=== PATIENT | female | born 2005 | race Caucasian/White ===

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

== ENCOUNTER 2025-02-08 20:39 | Observation (INO) | payer MEDICAID, SELFPAY ==
--- OUTSIDE RECORDS SUMMARY | 2025-02-08 20:45 | XMS_ITS | CCD ---
Author Organization [facility]iniSyma Care Team Providers Care Press Shop Supervisor Name Role Phone REJI VAZQUEZ Consulting Unavailable REJI VAZQUEZ Attending Unavailable SHEMAR SETH Primary Care Unavailable REJI VAZQUEZ Admitting Unavailable Amaya Steele Unavailable Sharonda Mercado Unavailable Lynsey Conklin Unavailable Liset Aguilera Unavailable Riya Edgar Unavailable Tessa Figueroa Unavailable No Pcp, No Pcp Primary Care Provider Unavailabl e KROTZER, MELISSA M Referring Unavailable NO PCP, NO PCP Primary Care Unavailable KROTZER, MELISSA M Referring Unavailable NO PCP, NO PCP Primary Care Unavailable Unavailable Primary Care Provider Unavailabl e No Pcp, No Pcp Primary Care Provider Unavailabl e SANDIP, MELISSA M Attending Unavailable SANDIP, MELISSA M Referring Unavailable NO PCP, NO PCP Primary Care Unavailable SANDIP, MELISSA M Referring Unavailable NO PCP, NO PCP Primary Care Unavailable SHOLEY, TATA M Attending Unavailable SHOLEY, TATA M Referring Unavailable NO PCP, NO PCP Primary Care Unavailable MACMAIN, LYNSEY M Referring Unavailable NO PCP, NO PCP Primary Care Unavailable KROTZER, MELISSA M Referring Unavailable NO PCP, NO PCP Primary Care Unavailable KROTZER, MELISSA M Referring Unavailable NO PCP, NO PCP Primary Care Unavailable SHOLEY, TATA M Admitting Unavailable SHOLEY, TATA M Attending Unavailable NO PCP, NO PCP Primary Care Unavailable KROTZER, MELISSA M Attending Unavailable KROTZER, MELISSA M Referring Unavailable NO PCP, NO PCP Primary Care Unavailable MACMAIN, LYNSEY M Referring Unavailable NO PCP, NO PCP Primary Care Unavailable MACMAIN, LYNSEY M Referring Unavailable NO PCP, NO PCP Primary Care Unavailable MACMAIN, LYNSEY M Referring Unavailable SHOLEY, TATA M Admitting Unavailable SHOLEY, TATA M Attending Unavailable NO PCP, NO PCP Primary Care Unavailable MELISSA DAILEY Referring Unavailable NO PCP, NO PCP Primary Care Unavailable NO PCP, NO PCP Primary Care Unavailable NO PCP, NO PCP Primary Care Unavailable NO PCP, NO PCP Primary Care Unavailable NO PCP, NO PCP Primary Care Unavailable NO PCP, NO PCP Primary Care Unavailable TATA PENG Attending Unavailable NO PCP, NO PCP Primary Care Unavailable NO PCP, NO PCP Primary Care Unavailable MELISSA DAILEY Attending Unavailable NO PCP, NO PCP Primary Care Unavailable Medications Current Medications Medication Drug Class(es) Dates Sig (Normalized) Sig (Original) amoxicillin 875 mg oral tablet (2 sources) Penicillin-class Antibacterial Start: 03-27-2022 take 1 tablet by mouth every twelve hours Amoxicillin 875 MG 1 tablet Orally every 12 hrs for 7 days Mar, Active atomoxetine 18 mg oral capsule (5 sources) Norepinephrine Reuptake Inhibitor Start: 07-08-2022 take 1 capsule by mouth every twenty-four hours Atomoxetine HCl 18 MG 1 capsule in the morning Orally Once a day for 30 day(s) Jun, Active Strattera Active cefdinir 300 mg oral capsule (2 sources) Cephalosporin Antibacterial Start: 09-28-2024 End: 10-03-2024 take 1 capsule by mouth in the morning, then take 1 capsule by mouth at bedtime cefDINIR (OMNICEF) 300 mg capsule Indications: UTI in , first trimester Take 1 capsule (300 mg total) by mouth in the morning and 1 capsule (300 mg total) before bedtime. Do all this for 5 days. 10 capsule 09/28/2024 10/03/2024 Active Start: 09-09-2024 End: 09-14-2024 take 1 capsule by mouth in the morning, then take 1 capsule by mouth at bedtime cefDINIR (OMNICEF) 300 mg capsule Indications: Cystitis of in first trimester Take 1 capsule (300 mg total) by mouth in the morning and 1 capsule (300 mg total) before bedtime. Do all this for 5 days. 10 capsule 09/09/2024 09/14/2024 Active ciprofloxacin 3 mg/ml ophthalmic solution (1 source) Quinolone Antimicrobial Start: 08-07-2023 take 1-2 drop(s) into the eye(s) every four hours Ciprofloxacin HCl 0.3 % 1-2 drops Ophthalmic every 4 hours for 7 Jul, Active dextromethorphan hydrobromide 15 mg / guaiFENesin 400 mg / pseudoephedrine hydrochloride 60 mg oral tablet (1 source) alpha-Adrenergic Agonist, Uncompetitive C-brplbs-M-asparta te Receptor Antagonist, Sigma-1 Agonist Start: 08-07-2023 take 4 tablets by mouth every twenty-fou r hours as needed Capmist DM 60-15-400 MG as needed Orally every 4-6 hours as needed, max 4 tablets in 24 hours for 5 days Jul, Active dextromethorphan hydrobromide 1.5 mg/ml / pyrilamine maleate 1.5 mg/ml oral solution (2 sources) Uncompetitive B-cmzeju-U-asparta te Receptor Antagonist, Sigma-1 Agonist Start: 07-08-2022 [place] DM 7.5-7.5 MG/5ML 10 ml Orally every 6-8 hours as needed for 8 days Jun, Active hydrocortisone 10 mg/ml / neomycin 3.5 mg/ml / polymyxin b 12275 unt/ml otic solution (2 sources) Aminoglycoside Antibacterial, Polymyxin-class Antibacterial, Corticosteroid Start: 03-27-2022 Ffjlafyz-Qaxgcdyps-BL 3.5-64856-8 4 drops into affected ear Otic Three times a day for 7 day(s) Mar, Active lamoTRIgine (3 sources) Mood Stabilizer, Anti-epileptic Agent lamoTRIgine Active methylPREDNISolone 4 mg oral tablet (2 sources) Corticosteroid Start: 03-27-2022 methylPREDNISolone 4 MG as directed Orally Once a day for 6 days Mar, Active [place] (No Known Home Meds) (1 source) Start: 06-10-2024 [place] (No Known Home Meds) Active June 09, 2024 11:00pm PNV no.153/FA/om3/dha/epa/ fish ( GUMMIES ORAL) (15 sources) PNV no.153/FA/om3/dha/epa /fish ( GUMMIES ORAL) Take by mouth. Active predniSONE 20 mg oral tablet (1 source) Start: 08-07-2023 take 1 tablet by mouth every twelve hours prednisone 20 MG 1 tablet Orally BID for 5 Jul, Active sertraline 25 mg oral tablet (2 sources) Serotonin Reuptake Inhibitor Start: 07-08-2022 take 1 tablet by mouth once daily at bedtime Sertraline HCl 25 MG 1 tablet Orally Once a day at bedtime for 30 day(s) Jun, Active Completed/Discontinued Medications Medication Drug Class(es) Dates Sig (Normalized) Sig (Original) amphetamine aspartate 5 mg / amphetamine sulfate 5 mg / dextroamphetamine saccharate 5 mg / dextroamphetamine sulfate 5 mg oral tablet (5 sources) Central Nervous System Stimulant Amphetamine-Dextroam ph etamine 20 MG Oral for 30 Days Not-Taking brompheniramine maleate 0.4 mg/ml / dextromethorphan hydrobromide 2 mg/ml / pseudoephedrine hydrochloride 6 mg/ml oral solution (4 sources) alpha-Adrenergic Agonist, Uncompetitive H-ckdvus-U-aspart ate Receptor Antagonist, Sigma-1 Agonist Start: 01-30-20 take 10 mL by mouth every six hours Corenechc-Cveobavg-NJ 30-2-10 MG/5ML 10 mL Orally every 6 hours for 5 days January, Not-Taking cephalexin 500 mg oral capsule (1 source) Cephalosporin Antibacterial Start: 06-10-20 End: 11-01-19 take 1 capsule by mouth three times daily Cephalexin 500 mg capsule Discontinued 500 MG PO Three times daily 10 04June 09, 2024 11:00pm November 01, 2024 5:23pm 1 ml medroxyPROGESTERone acetate 150 mg/ml injection (1 source) Progestin Start: 10-05-19 End: 10-05-19 medroxyPROGESTERone (DEPO-PROVERA) injection 150 mg Start: 10-05-2024 End: 10-05-2024 medroxyPROGESTERone (DEPO-[place] OVERA) injection 150 mg Problems Active Problems Problem Classification Problem Date Documented Date Episodic/Chronic Abdominal pain (4 sources) Epigastric pain; Translations: [Unspecified abdominal pain] Onset: 11-13-2021 Episodic Administrative/socia l admission (2 sources) Encounter for pre-employment examination Onset: 11-12-2021 Resolved: 11-12-2021 Episodic Allergic reactions (11 sources) Environmental allergy; Translations: [Other allergy status, other than to drugs and biological substances] Episodic Anxiety disorders (12 sources) Generalized anxiety disorder; Translations: [Generalized anxiety disorder] Onset: 01-28-2022 Resolved: 01-28-2022 Chronic Attention-deficit, conduct, and disruptive behavior disorders (10 sources) Attention deficit hyperactivity disorder, combined type; Translations: [Attention-deficit hyperactivity disorder, combined type] Chronic Attention-deficit, conduct, and disruptive behavior disorders (2 sources) Attention-deficit hyperactivity disorder, combined type Onset: 01-28-2022 Resolved: 01-28-2022 Chronic Diabetes or abnormal glucose tolerance complicating ; childbirth; or the puerperium (4 sources) with abnormal glucose tolerance test; Translations: [Abnormal glucose complicating ] Onset: 01-20-2025 01-20-2025 Episodic E Codes: Fall (11 sources) Fall; Translations: [Unspecified fall, initial encounter] Onset: 12-07-2024 12-08-2024 Episodic E Codes: Fall (1 source) Fall Onset: 12-07-2024 Immunizations and screening for infectious disease (8 sources) Contact with and (suspected) exposure to other viral communicable diseases; Translations: [Contact with and (suspected) exposure to other viral communicable diseases] Episodic Inflammation; infection of eye (except that caused by tuberculosis or sexually transmitteddisease) (1 source) Unspecified acute conjunctivitis, right eye Episodic Nonmalignant breast conditions (1 source) Cellulitis of breast; Translations: [Mastitis without abscess] 06-10-2024 Episodic Other complications of (16 sources) Maternal obesity complicating , childbirth and the puerperium, antepartum; Translations: [Obesity complicating , unspecified trimester] Onset: 08-30-2024 08-30-2024 Chronic Other complications of (1 source) Obesity complicating , first trimester; Translations: [Obesity complicating , first trimester] Onset: 08-30-2024 Chronic Other complications of (1 source) Cystitis of ; Translations: [Infections of bladder in , first trimester] 09-09-2024 Episodic Other and delivery including normal (20 sources) Para 1; Translations: [Encounter for supervision of normal first , unspecified trimester] Onset: 08-30-2024 08-30-2024 Episodic Other screening for suspected conditions (not mental disorders or infectious disease) (6 sources) Patient encounter status; Translations: [Encounter for other screening for genetic and chromosomal anomalies] Onset: 10-05-2024 10-05-2024 Episodic Other upper respiratory infections (2 sources) Acute upper respiratory infection, unspecified Episodic Unclassified (1 source) fall in Onset: 01-11-2025 Unclassified (1 source) Other underimmunization status; Translations: [Other underimmunization status] Onset: 09-08-2024 Unclassified (1 source) Routine Visit Onset: 11-02-2024 Unclassified (1 source) Genetic Screening Onset: 10-05-2024 Unclassified (1 source) Initial Visit Onset: 09-28-2024 Past or Other Problems Problem Classification Problem Date Documented Da te Episodic/Chronic Other complications of (15 sources) Rubella non-immune; Translations: [Supervision of other high risk pregnancies, unspecified trimester] Onset: 09-08-2024 09-08-2024 Episodic Other complications of (15 sources) Varicella non-immune; Translations: [Supervision of other high risk pregnancies, unspecified trimester] Onset: 09-08-2024 09-08-2024 Episodic Other complications of (20 sources) Urinary tract infection in ; Translations: [Unspecified infection of urinary tract in , first trimester] Onset: 09-09-2024 09-09-2024 Episodic Other complications of (3 sources) Unspecified infection of urinary tract in , first trimester; Translations: [Unspecified infection of urinary tract in , first trimester] Onset: 09-09-2024 Episodic Other complications of (1 source) Supervision of other high risk pregnancies, unspecified trimester; Translations: [Supervision of other high risk pregnancies, unspecified trimester] Onset: 09-08-2024 Episodic Otitis media and related conditions (1 source) Otitis media, unspecified, left ear Onset: 03-27-2022 Resolved: 03-27-2022 Episodic Unclassified (2 sources) Contact with and (suspected) exposure to covid-19 Z20.822 Unclassified (1 source) Patient encounter status 11-02-2024 Results Test Name Value Interpretation Reference Range Facility SECOND HOUR GLUCOSE TOLERANC E 100 GM LOADon 01-20-2025 2ND HR GTT 100GM LOAD 107 mg/dL Normal 70-139 [facility] Comment on above: Order Comment: Nancyt h International Workshop Conference:Recommendations and Rationale for Screening and diagnosis of Gestational Diabetes Mellitus 2 or more of the following must be met or exceeded for a positive diagnosis.FASTING: >=95 mg/dL1hr post 100g load: >=180 mg/dL2hr post 100g load: >=155 mg/dL3hr post 100g load: >=140 mg/dL Performed By: #### 2 0415-6 #### [facility] ([id number]) [address] [place] [address] CBC (NO DIFF)on 01-19-2025 Erythrocyte distribution width (RBC) [Ratio] 13.7 % Normal 11.5-15 [facility] Comment on above: Performed By: #### 2 0415-6 #### [facility] ([id number]) [address] [place] [address] Hematocrit (Bld) [Volume fraction] 35.6 % Normal 35-47 [facility] Comment on above: Performed By: #### 2 0415-6 #### [facility] ([id number]) [address] [place] [address] Hemoglobin (Bld) [Mass/Vol] 11.9 g/dL Normal 11.7-15.5 [facility] Comment on above: Performed By: #### 2 0415-6 #### [facility] ([id number]) [address] [place] [address] MCH (RBC) [Entitic mass] 28.2 pg Normal 27-34 [facility] Comment on above: Performed By: #### 2 0415-6 #### [facility] ([id number]) [address] [place] [address] MCHC (RBC) [Mass/Vol] 33.4 g/dL Normal 32-36 [facility] Comment on above: Performed By: #### 2 0415-6 #### [facility] ([id number]) [address] [place] [address] MCV (RBC) [Entitic vol] 85 fL Normal 80-100 [facility] Comment on above: Performed By: #### 2 0415-6 #### [facility] ([id number]) [address] [place] [address] Platelet mean volume (Bld) [Entitic vol] 9.2 fL Normal 7-12 [facility] Comment on above: Performed By: #### 2 0415-6 #### [facility] ([id number]) [address] [place] [address] Platelets (Bld) [#/Vol] 262 10*3/uL Normal 150-450 [facility] Comment on above: Performed By: #### 2 0415-6 #### [facility] ([id number]) [address] [place] [address] RBC COUNT 4.21 X10E12/L Normal 3.8-5.2 [facility] Comment on above: Performed By: #### 2 0415-6 #### [facility] ([id number]) [address] [place] [address] WBC (Bld) [#/Vol] 10.4 10*3/uL Normal 4-11 [facility] Comment on above: Performed By: #### 2 0415-6 #### [facility] ([id number]) [address] [place] [address] SYPHILIS TOTAL(UNKNOWN SYPHI LIS STATUS)on 01-19-2025 SYPHILIS TOTAL <^0.2 Normal <=0.8 [facility] Comment on above: Order Comment: NON R EACTIVENo serologic evidence of infection to Treponema pallidum. Repeat testing may be considered in patients with suspected acute or primary syphilis in 2 to 4 weeks. Performed By: #### 2 0415-6 #### [facility] ([id number]) [address] [place] [address] DRUG SCREEN, URINEon 025 AMPHETAMINE/METHAMP Negative Normal NEG [facility] Comment on above: Result Comment: AMPH /METH screening cut off = 1000 ng/mL Performed By: #### 2 0415-6 #### [facility] ([id number]) [address] [place] [address] BARBITURATES Negative Normal NEG [facility] Comment on above: Result Comment: Melissa iturates screening cut off value = 200 ng/mL Performed By: #### 2 0415-6 #### [facility] ([id number]) [address] [place] [address] BENZODIAZEPINES Negative Normal NEG [facility] Comment on above: Result Comment: Nik odiazepines screening cut off value = 200 ng/mL Performed By: #### 2 0415-6 #### [facility] ([id number]) [address] [place] [address] CANNABINOIDS Negative Normal NEG [facility] Comment on above: Result Comment: Mona abinoids/THC screening cut off value = 50 ng/mL Performed By: #### 2 0415-6 #### [facility] ([id number]) [address] [place] [address] COCAINE METABOLITE Negative Normal NEG [facility] Comment on above: Result Comment: Coca ine screening cut off value = 300 ng/mL Performed By: #### 2 0415-6 #### [facility] ([id number]) [address] [place] [address] ECSTASY Negative Normal NEG [facility] Comment on above: Result Comment: Ecst asy screening cut off value = 500 ng/mL This report is intended for use in clinical monitoring or management of patients. Performed By: #### 2 0415-6 #### [facility] ([id number]) [address] [place] [address] METHADONE Negative Normal [facility] Comment on above: Result Comment: Meth adone screening cut off value = 300 ng/mL. Performed By: #### 2 0415-6 #### [facility] ([id number]) [address] [place] [address] OPIATES Negative Normal NEG [facility] Comment on above: Result Comment: Opia chio screening cut off value = 300 ng/mL NOTE: This test is used for the detection of codeine, hydrocodone (>1000 ng/mL), morphine and hydromorphone (>900 ng/mL) in urine. Performed By: #### 2 0415-6 #### [facility] ([id number]) [address] [place] [address] OXYCODONE Negative Normal [facility] Comment on above: Result Comment: Oxyc odone screening cut off value = 300 ng/mL NOTE: This test is used for the detection of oxycodone and oxymorphone in urine. Performed By: #### 2 0415-6 #### [facility] ([id number]) [address] [place] [address] PHENCYCLIDINE Negative [facility] Comment on above: Result Comment: Phen cyclidine screening cut off value = 25 ng/mL Performed By: #### 2 0415-6 #### [facility] ([id number]) [address] [place] [address] US PREG LMTD 1 OR MORE FETUS on 12-08-2024 US PREG LMTD 1 OR MORE FETUS US PREG LMTD 1 OR MORE FETUS US PREG LMTD 1 OR MORE FETUS: 12/08/2024 10:56 AM Clinical: Check amniotic fluid volume. Injury. EXAM: KONSTANTIN ONLY ULTRASOUND Real-time sonography performed for determination of amniotic fluid volume only. There is a single live intrauterine in a cephalic presentation with cardiac activity 146 beats per minute. Cervical region obscured. Posterior fundal placenta. Impression: DVP is 4.6 cm. Finalized by Harman Diaz MD on 12/08/2024 11:25 AM Normal [facility] AFP panelon 11-30-2024 AFP SINGLE MARKER SCRN, MATERNAL, SERUM SEE COMMENTS 12/02/2024 12:04 PM Normal [facility] Comment on above: Result Comment: NOTE Test Result Flag Unit RefValue - AFP Single Marker SCRN, Maternal, S Results Summary Normal risk Neural tube defect risk estimate 1/11,000 AFP 33.2 ng/mL AFP MoM 0.83 MoM <2.50 INTERPRETATION Screen negative for neural tube defects. RECOMMENDED FOLLOW UP None. Specimen collection date 11/30/24 Maternal date of [birth year] Calculated age at KARINA 19 years Maternal Weight 223 lbs Insulin dependent diabetes No Patient race non-Black Current cigarette smoking status non-Smoker KARINA by U/S scan 04/24/2025 GA on collection by U/S scan 19,2 wk,d GA used in risk estimate Scan estimate Number of Fetuses 1 Number of Chorions Not applicable IVF No Prev w/ Neural Tube No Defect Patient or father of baby has a No NTD Initial or repeat testing Initial testing Physician GENERAL TEST INFORMATION See Note This screening provides an estimation of risk, not a diagnosis. Incorrect or incomplete information may significantly alter results. Results may be unreliable in twin pregnancies with a demise. Results are not available for pregnancies with triplets and higher-order multiples. A positive result occurs when the AFP MoM equals or exceeds 2.5. Screen results and family history influence individual risk. If there is a family history of a neural tube defect, chromosome abnormality, or other inherited condition, consider the option of a genetic consultation. For further information, please contact the maternal screening laboratory at . ADDITIONAL INFORMATION This test was developed and its performance characteristics determined by [facility] in a manner consistent with CLIA requirements. This test has not been cleared or approved by the U.S. Food and Drug Administration. Test Performed by: [facility] [address] [place] [address] Extrusion Press Adjuster: Trudi Lewis Ph.D.; CLIA# [id number] Performed By: #### 2 0415-6 #### [facility] ([id number]) [address] [place] [address] URINE CULTUREon 11-02-2024 Bacteria identified Cx Nom (U) CULTURE RESULTS 50-100,000 ORGANISMS/ML NORMAL UROGENITAL SHANIQUA Normal [facility] Comment on above: Performed By: #### 6 30-4 #### [facility] ([id number]) [address] [place] [address] CHLAMYDIA/GC BY PCRon 2024 CHLAMYDIA/GC BY PCR SPECIMEN SOURCE CERVIX Corrected on 09/29 AT 1102: Previously reported as CERVICAL CHLAMYDIA DNA(PCR) Negative (qualifier value) Chlamydia trachomatis not detected by nucleic acid amplification. This does not exclude the possibility of infection because results are dependent on adequate specimen collection. GONORRHOEAE DNA(PCR) Negative (qualifier value) Neisseria gonorrhoeae not detected by nucleic acid amplification. This does not exclude the possibility of infection because results are dependent on adequate specimen collection. Normal [facility] Comment on above: Performed By: #### C GS #### [facility] ([id number]) [address] [place] [address] US PREG LESS THAN 14 WKS WIT H TRANSVAGINALon 09-07-2024 US PREG LESS THAN 14 WKS WITH TRANSVAGINAL US PREG LESS THAN 14 WKS WITH TRANSVAGINAL US PREG LESS THAN 14 WKS WITH TRANSVAGINAL: 09/06/2024 1:34 PM Clinical: Check dates and viability. Real-time transabdominal and transvaginal sonography pelvis performed.. No comparison. There is a single intrauterine with cardiac activity 163 beats per minute. [place]-rump length of 1.1 cm corresponds to 7 week 1 day gestation. Amount amniotic fluid is normal. Placenta not well seen due to early gestational age. Maternal ovaries are unremarkable. No cul-de-sac fluid seen. Impression: * Single intrauterine 7 week 1 day gestation with cardiac activity. * Ultrasound KARINA 04/24/2025. Finalized by Harman Diaz MD on 09/07/2024 7:54 AM Normal [facility] ACUTE HEPATITIS PANELon 08-21 ANTI HCV W/PCR REFLX Non-Reactive Normal NRCT Pr [facility] Comment on above: Result Comment: NEW TEST METHOD NOTE If recent infection suspected, recommend repeat testing (>2 months). Pjtarb-wf-hpcflg ratio is <1.00. Performed By: #### C REMIGIO, 1504-0, 99125-5, 84579-3, 88312-1, AHP, 46746-1 #### [facility] ([id number]) [address] [place] [address] HEPATITIS A IGM Non-Reactive Normal NRCT [facility] Comment on above: Result Comment: NEW TEST METHOD Performed By: #### C REMIGIO, 1504-0, 37801-1, 52298-1, 68632-9, AHP, 35456-7 #### [facility] ([id number]) [address] [place] [address] HEPATITIS B CORE IGM Non-Reactive Normal NRCT Pr [facility] Comment on above: Result Comment: NEW TEST METHOD Performed By: #### C BC, 1504-0, 92908-6, 01254-2, 79206-9, AHP, 06189-6 #### [facility] ([id number]) [address] [place] [address] HEPATITIS B SURF AG Non-Reactive Normal NRCT [facility] Comment on above: Result Comment: NEW TEST METHOD Performed By: #### C BC, 1504-0, 29036-0, 77537-5, 70350-2, AHP, 01332-8 #### [facility] ([id number]) [address] [place] [address] COMPLETE BLOOD COUNTon 09-06 Erythrocyte distribution width (RBC) [Ratio] 14.1 % Normal 11.5-15.0 [facility] Comment on above: Performed By: #### Yasmin BC, 1504-0, 76996-5, 39925-5, 82888-6, AHP, 74004-2 #### [facility] ([id number]) [address] [address] [place] [address] Hematocrit (Bld) [Volume fraction] 41.2 % Normal 35-47 [facility] Comment on above: Performed By: #### Yasmin BC, 1504-0, 51191-6, 41960-8, 00767-7, AHP, 71858-7 #### [facility] ([id number]) [address] [facility] [address] [place] [address] Hemoglobin (Bld) [Mass/Vol] 13.9 g/dL Normal 11.7-15.5 [facility] Comment on above: Performed By: #### Yasmin BC, 1504-0, 78754-9, 03102-8, 67636-4, AHP, 76401-7 #### [facility] ([id number]) [address], [facility] [address] [place] [address] MCH (RBC) [Entitic mass] 29.0 pg Normal 27-34 [facility] Comment on above: Performed By: #### Yasmin BC, 1504-0, 17416-0, 70581-4, 95929-0, AHP, 06286-0 #### [facility] ([id number]) [address] [address] [place] [address] MCHC (RBC) [Mass/Vol] 33.6 g/dL Normal 32-36 [facility] Comment on above: Performed By: #### Yasmin FLOOD, 1504-0, 85816-1, 45143-7, 95960-2, AHP, 18464-8 #### [facility] ([id number]) [address], [address] [place] [address] MCV (RBC) [Entitic vol] 86 fL Normal 80-100 [facility] Comment on above: Performed By: #### Yasmin FLOOD, 1504-0, 55746-5, 61708-2, 24049-8, AHP, 10485-8 #### [facility] ([id number]) [address], [address] [place] [address] Platelet mean volume (Bld) [Entitic vol] 8.4 fL Normal 7-12 [facility] Comment on above: Performed By: #### Yasmin FLOOD, 1504-0, 14436-7, 48789-3, 97213-5, AHP, 43629-0 #### [facility] ([id number]) [address], [address] [place] [address] Platelets (Bld) [#/Vol] 284 10*3/uL Normal 150-450 [facility] Comment on above: Performed By: #### Yasmin FOLOD, 1504-0, 98718-6, 21126-0, 48027-3, AHP, 76122-1 #### [facility] ([id number]) [address], [address] [place] [address] RBC COUNT 4.78 X10E12/L Normal 3.80-5.20 [facility] Comment on above: Performed By: #### Yasmin BC, 1504-0, 17439-3, 41215-9, 36898-6, AHP, 85526-0 #### [facility] ([id number]) [address], [address] [place] [address] WBC (Bld) [#/Vol] 10.4 10*3/uL Normal 4.0-11.0 [facility] Comment on above: Performed By: #### C BC, 1504-0, 63125-0, 02589-5, 02427-2, P, 90312-7 #### [facility] ([id number]) [address], [address] [place] [address] DRUG SCREEN, URINEon 024 AMPHETAMINE/METHAMP Negative Normal NEG [facility] Comment on above: Result Comment: AMPH /METH screening cut off = 1000 ng/mL Performed By: #### 2 0415-6 #### [facility] ([id number]) [address], [address] [place] [address] BARBITURATES Negative Normal NEG [facility] Comment on above: Result Comment: Melissa iturates screening cut off value = 200 ng/mL Performed By: #### 2 0415-6 #### [facility] ([id number]) [address], [address] [place] [address] BENZODIAZEPINES Negative Normal NEG [facility] Comment on above: Result Comment: Nik odiazepines screening cut off value = 200 ng/mL Performed By: #### 2 0415-6 #### [facility] ([id number]) [address], [address] [place] [address] CANNABINOIDS Negative Normal NEG [facility] Comment on above: Result Comment: Mona abinoids/THC screening cut off value = 50 ng/mL Performed By: #### 2 0415-6 #### [facility] ([id number]) [address], [address] [place] [address] COCAINE METABOLITE Negative Normal NEG [facility] Comment on above: Result Comment: Coca ine screening cut off value = 300 ng/mL Performed By: #### 2 0415-6 #### [facility] ([id number]) [address], [address] [place] [address] ECSTASY Negative Normal NEG [facility] Comment on above: Result Comment: Ecst asy screening cut off value = 500 ng/mL This report is intended for use in clinical monitoring or management of patients. Performed By: #### 2 0415-6 #### [facility] ([id number]) [address], [address] [place] [address] METHADONE Negative Normal NEG [facility] Comment on above: Result Comment: Meth adone screening cut off value = 300 ng/mL. Performed By: #### 2 0415-6 #### [facility] ([id number]) [address] [facility] [place] [address] OPIATES Negative Normal NEG [facility] Comment on above: Result Comment: Opia chio screening cut off value = 300 ng/mL NOTE: This test is used for the detection of codeine, hydrocodone (>1000 ng/mL), morphine and hydromorphone (>900 ng/mL) in urine. Performed By: #### 2 0415-6 #### [facility] ([id number]) [address] [facility], [address] [place] [address] OXYCODONE Negative Normal [facility] Comment on above: Result Comment: Oxyc odone screening cut off value = 300 ng/mL NOTE: This test is used for the detection of oxycodone and oxymorphone in urine. Performed By: #### 2 0415-6 #### [facility] ([id number]) [address], [address] [place] [address] PHENCYCLIDINE Negative Normal [facility] Comment on above: Result Comment: Phen cyclidine screening cut off value = 25 ng/mL Performed By: #### 2 0415-6 #### [facility] ([id number]) [address], [address] [place] [address] Glucose 1 Hr post 50 g gluco se PO [Mass/Vol]on 09-06-2024 GLU 1H POST 50G LOAD 126 mg/dL Normal 65-139 [facility] Comment on above: Performed By: #### Yasmin FLOOD, 1504-0, 64899-3, 44349-2, 70970-6, [facility], 30272-2 #### [facility] ([id number]) [address] [facility] [place] [address] HIV 1+2 Ab+HIV1 p24 Ag IA Ql on 09-06-2024 HIV 1 and 2 Ab/Ag Screen Non-Reactive Normal NRCT [facility] Comment on above: Result Comment: NEW TEST METHOD NOTE This information has been disclosed to you from confidential records protected from disclosure by state law. You shall make no further disclosure of this information without the specific, written and informed release of the individual to whom it pertains, or as otherwise permitted by state law. A general authorization for the release of medical or other information is not sufficient for the purpose of the release of HIV test results or diagnoses. Performed By: #### Yasmin FLOOD, 1504-0, 04359-5, 88993-2, 29943-2, [facility], 39341-2 #### [facility] ([id number]) [address], [address] [place] [address] Rubella virus Ab Ql (S)on RUBELLA IMMUNE IgG 0.6 AI Normal [facility] Comment on above: Result Comment: Interpretation-------- <0.8 NEGATIVE-considered Not Immune 0.8-0.9 EQUIVOCAL-consider retesting with new specimen >0.9 POSITIVE-considered Immune Performed By: #### Yasmin FLOOD, 1504-0, 70370-0, 33692-2, 53424-8, [facility], 68905-3 #### [facility] ([id number]) [address] [facility] [place] [address] T. pallidum IgG+IgM IA Ql (S )on 09-06-2024 Syphilis Total <0.2 Normal 0.0-0.8 [facility] Comment on above: Result Comment: NON REACTIVE No serologic evidence of infection to Treponema pallidum (syphilis). Repeat testing may be considered in patients with suspected acute or primary syphilis in 2 to 4 weeks. Performed By: #### C BC, 1504-0, 58925-0, 94585-7, 63204-0, P, 81025-9 #### [facility] ([id number]) [address], [address] [place] [address] URINALYSISon 09-06-2024 Bilirubin Ql (U) Negative Normal NEG [facility] Comment on above: Performed By: #### U A #### [facility] ([id number]) [address], [address] [place] [address] BLOOD/HGB Negative Normal NEG [facility] Comment on above: Performed By: #### U A #### [facility] ([id number]) [address], [address] [place] [address] Color (U) YELLOW Normal YELLOW [facility] Comment on above: Performed By: #### U A #### [facility] ([id number]) [address], [address] [place] [address] Glucose Ql (U) Negative Normal NEG [facility] Comment on above: Performed By: #### U A #### [facility] ([id number]) [address] [place] [address] Ketones Ql (U) Negative Normal NEG [facility] Comment on above: Performed By: #### U A #### [facility] ([id number]) [address], [address] [place] [address] Leukocyte esterase Test strip Ql (U) MODERATE Abnormal NEG [facility] Comment on above: Performed By: #### U A #### [facility] ([id number]) [address] [place] [address] Nitrite Ql (U) Negative Normal NEG [facility] Comment on above: Performed By: #### U A #### [facility] ([id number]) [address], [address] [place] [address] pH (U) 7.0 [pH] Normal 5.0-8.5 [facility] Comment on above: Performed By: #### U A #### [facility] ([id number]) [address], [address] [place] [address] Protein Ql (U) Negative Normal NEG [facility] Comment on above: Performed By: #### U A #### [facility] ([id number]) [address], [address] [place] [address] R.B.CELLS <1 Normal 0-5 [facility] Comment on above: Performed By: #### U A #### [facility] ([id number]) [address], [address] [place] [address] Specific gravity (U) [Rel density] 1.003 Normal 1.003-1.035 [facility] Comment on above: Performed By: #### U A #### [facility] ([id number]) [address] [place] [address] SQUAMOUS EPITHELIUM 1 /hpf Normal 0-5 [facility] Comment on above: Performed By: #### U A #### [facility] ([id number]) [address], [address] [place] [address] TURBIDITY CLEAR Normal CLEAR [facility] Comment on above: Performed By: #### U A #### [facility] ([id number]) [address], [address] [place] [address] Urobilinogen (U) [Mass/Vol] mg/dL Normal <1.1 [facility] Comment on above: Performed By: #### U A #### [facility] ([id number]) [address] [place] [address], [address] [place] [address] W.B.CELLS 4 /hpf Normal 0-5 [facility] Comment on above: Performed By: #### U A #### [facility] ([id number]) [address] [place] [address], [address] [place] [address] URINE CULTUREon 09-06-2024 Bacteria identified Cx Nom (U) CULTURE RESULTS >100,000 ORGANISMS/mL KLEBSIELLA PNEUMONIAE <10,000 ORGANISMS/mL NORMAL URO GENITAL SHANIQUA [ S = SUSCEPTIBLE R = RESISTANT I = INTERMEDIATE S-DO = Susceptible-dose dependent NS = Non-suscceptible NO = No Interpretation ] Organism: KLEBSIELLA PNEUMONIAE Antibiotic Interpretation JOS Status AMPICILLIN R >=32 F AMP/SULBACTAM S 4/2 F CEFAZOLIN S <=4 F CEFTRIAXONE S <=0.25 F CIPROFLOXACIN S <=0.25 F GENTAMICIN S <=1 F LEVOFLOXACIN S <=0.12 F NITROFURANTOIN S <=16 F PIPERACIL/TAZOBACTAM S <=4 F TOBRAMYCIN S <=1 F TRIMETH/SULFAMETHOXA ZOLE S <=1/19 F Susceptible [facility] Comment on above: Performed By: #### 2 0415-6 #### [facility] ([id number]) [address] [place] [address], [address] [place] [address] VZV IgG IA Ql (S)on 09-06-20 24 VARICELLA IgG 0.9 AI High <0.9 [facility] Comment on above: Result Comment: Interpretation-------- <0.9 Negative 0.9 - 1.0 Equivocal >1.0 Positive Performed By: #### C BC, 1504-0, 53999-5, 86777-1, 29643-7, [facility], 00952-6 #### [facility] ([id number]) [address] [place] [address], [address] [place] [address] HCG.beta subunit IA 3rd IS Q non 08-08-2024 HCG.beta subunit Qn 175 m[IU]/mL Normal [facility] Comment on above: Result Comment: NEW REFERENCE RANGE WEEKS (SINCE LMP) MIU/mL 3 WEEKS 5 - 50 4 WEEKS 5 - 426 5 WEEKS 18 - 7,340 6 WEEKS 1,080 - 56,500 7-8 WEEKS 7,650 - 229,000 9-12 WEEKS 25,700 - 288,000 13-16 WEEKS 13,300 - 254,000 17-24 WEEKS 4,060 - 165,400 25-40 WEEKS 3,640 - 117,000 MALES AND NON- FEMALES - <5 MIU/mL This test has been FDA approved for use in only. Elevated levels are not necessarily diagnostic for trophoblastic or nontrophoblastic neoplasms. Performed By: #### 2 0415-6 #### [facility] ([id number]) [address] [place] [address], [address] [place] [address] HCG.beta subunit IA 3rd IS Q non 08-05-2024 HCG.beta subunit Qn 39 m[IU]/mL Normal [facility] Comment on above: Result Comment: NEW REFERENCE RANGE WEEKS (SINCE LMP) MIU/mL 3 WEEKS 5 - 50 4 WEEKS 5 - 426 5 WEEKS 18 - 7,340 6 WEEKS 1,080 - 56,500 7-8 WEEKS 7,650 - 229,000 9-12 WEEKS 25,700 - 288,000 13-16 WEEKS 13,300 - 254,000 17-24 WEEKS 4,060 - 165,400 25-40 WEEKS 3,640 - 117,000 MALES AND NON- FEMALES - <5 MIU/mL This test has been FDA approved for use in only. Elevated levels are not necessarily diagnostic for trophoblastic or nontrophoblastic neoplasms. Performed By: #### 2 0415-6 #### [facility] ([id number]) [address] [place] [address], [address] [place] [address] SARS-CoV-2 (COVID-19) RNA NA A+probe Ql (Resp)on 11-21-2022 SARS-CoV-2 (COVID-19) RNA TICO+probe Ql (Unsp spec) Negative [employer] Other COVID/FLU RT-PCRon SARS-CoV-2 (COVID-19) RNA TICO+probe Ql (Unsp spec) Negative [facility] [employer] Other COVID/FLU RT-PCR Negative [facility] [employer] Other XR ABD FLAT UP_PA Tc 11-14 XR ABD FLAT UP_PA CH EXAM: XR ABD FLAT UP_PA CH HISTORY: Pain COMPARISON: None. TECHNIQUE: PA chest and 3 views of the abdomen FINDINGS: The lung parenchyma is free of consolidation or infiltrate. No pneumothorax or pleural effusion. The cardiac, mediastinal and hilar contours are normal. The bowel gas pattern is nonobstructed. No free intraperitoneal air. No visualized intra-abdominal calcification. The visualized osseous structures exhibit no gross abnormality. IMPRESSION: Normal x-rays Electronically authenticated by: AMAYA STEELE Date: 2021-11-13 22:[address] [facility] CBC AUTO DIFFon 11-13-2021 BASO # 0.0 103/ul Normal 0.0-0.1 [facility] Comment on above: Performed By: #### C BC #### [facility] [address] [place], [place] [address] Dr. Malick Haider Basophils/100 WBC (Bld) 0.3 % Normal 0.2-2.0 [facility] Comment on above: Performed By: #### C BC #### [facility] [address] [place], [place] [address] Dr. Malick Haider EO # 0.2 103/ul Normal 0.0-0.7 [facility] Comment on above: Performed By: #### C BC #### [facility] [address] [place] [address] Dr. Malick Haider Eosinophils/100 WBC (Bld) 1.5 % Normal 0.9-7.0 [facility] Comment on above: Performed By: #### C BC #### [facility] [address] [place] [address] Dr. Malick Haider Erythrocyte distribution width (RBC) [Ratio] 13.6 % Normal 11.0-15.0 [facility] Comment on above: Performed By: #### C BC #### [facility] [address] [place] [address] Dr. Malick Haider Hematocrit (Bld) [Volume fraction] 40.3 % Normal 36.0-48.0 [facility] Comment on above: Performed By: #### C BC #### [facility] [address] [place] [address] Dr. Malick Haider Hemoglobin (Bld) [Mass/Vol] 13.1 g/dL Normal 12.0-16.0 [facility] Comment on above: Performed By: #### C BC #### [facility] [address] [place] [address] Dr. Malick Haider IG # 0.02 10e3/ul Normal 0.00-0.03 [facility] Comment on above: Performed By: #### C BC #### [facility] [address] [place] [address] Dr. Malick Haider IG % 0.2 % Normal 0.0-0.5 [facility] Comment on above: Performed By: #### C BC #### [facility] [address] [place] [address] Dr. Malick Haider LYMPH # 4.1 103/ul Critically high 1.2-3.8 [facility] Comment on above: Performed By: #### C BC #### [facility] [address] [place] [address] Dr. Malick Haider Lymphocytes/100 WBC (Bld) 38.7 % Normal 20.5-60.0 [facility] Comment on above: Performed By: #### C BC #### [facility] [address] [place] [address] Dr. Malick Haider MANUAL DIFF REQ NO Normal [facility] Comment on above: Performed By: #### C BC #### [facility] [address] [place] [address] Dr. Malick Haider MCH (RBC) [Entitic mass] 27.0 pg Normal 26.7-34.0 [facility] Comment on above: Performed By: #### C BC #### [facility] [address] [place] [address] Dr. Malick Haider MCHC (RBC) [Mass/Vol] 32.5 g/dL Normal 29.9-35.[address] [facility] Comment on above: Performed By: #### C BC #### [facility] [address] [place] [address] Dr. Malick Haider MCV (RBC) [Entitic vol] 82.9 fL Normal 79.1-95.6 [facility] Comment on above: Performed By: #### C BC #### [facility] [address] [place] [address] Dr. Malick Haider MONO # 0.8 103/ul Normal 0.3-0.8 [facility] Comment on above: Performed By: #### C BC #### [facility] [address] [place] [address] Dr. Malick Haider Monocytes/100 WBC (Bld) 7.9 % Normal 1.7-12.0 [facility] Comment on above: Performed By: #### C BC #### [facility] [address] [place] [address] Dr. Malick Haider NEUT # 5.5 103/ul Normal 1.4-6.[address] [facility] Comment on above: Performed By: #### C BC #### [facility] [address] [place] [address] Dr. Malick Haider Neutrophils/100 WBC (Bld) 51.4 % Normal 43.0-75.[address] [facility] Comment on above: Performed By: #### C BC #### [facility] [address] [place] [address] Dr. Malick Haider Platelet mean volume (Bld) [Entitic vol] 9.6 fL Normal 9.5-13.5 [facility] Comment on above: Performed By: #### C BC #### [facility] [address] [place] [address] Dr. Malick Haider PLT 335 103/ul Normal 150-[address] [facility] Comment on above: Performed By: #### C BC #### [facility] [address] [place] [address] Dr. Malick Haider RBC 4.86 106/ul Normal 3.40-5.30 [facility] Comment on above: Performed By: #### C BC #### [facility] [address] [place] [address] Dr. Malick Haider WBC 10.7 103/ul Normal 4.0-11.0 [facility] Comment on above: Performed By: #### C BC #### [facility] [address] [place] [address] Dr. Malick Haider ER URINE PROFILEon 2 Bilirubin Ql (U) Negative Normal NEGATIVE [facility] Comment on above: Performed By: #### E RUR #### [facility] [address] [place] [address] Dr. Malick Haider Clarity (U) CLEAR Normal CLEAR [facility] Comment on above: Performed By: #### E RUR #### [facility] [address] [place] [address] Dr. Malick Haider Color (U) LT. YELLOW Normal YELLOW [facility] Comment on above: Performed By: #### E RUR #### [facility] [address] [place] [address] Dr. Malick GARCIA A micrscopic examination will be performed if indicated. Normal [facility] Comment on above: Performed By: #### E RUR #### [facility] [address] [place] [address] Dr. Malick Haider Glucose Ql (U) Negative Normal NEGATIVE [facility] Comment on above: Performed By: #### E RUR #### [facility] [address] [place] [address] [address] Malick Haider Hemoglobin Ql (U) Negative Normal NEGAT[facility] Comment on above: Performed By: #### E RUR #### [facility] [address] [place] [address] Dr. Malick Haider Ketones Ql (U) Negative Normal NEGATIVE [facility] Comment on above: Performed By: #### E RUR #### [facility] [address] [place] [address] Dr. Malick Haider LEUKOCYTES Negative Normal NEGATIVE [facility] Comment on above: Performed By: #### E RUR #### [facility] [address] [place] [address] Dr. Malick Haider Nitrite Ql (U) Negative Normal NEGATIVE [facility] Comment on above: Performed By: #### E RUR #### [facility] [address] [place] [address] Dr. Malick Haider pH (U) 6.0 [pH] Normal 5-9 [facility] Comment on above: Performed By: #### E RUR #### [facility] [address] [place] [address] Dr. Malick Haider SPEC GRAVITY 1.025 Normal 1.005-<=1.025 [facility] Comment on above: Performed By: #### E RUR #### [facility] [address] [place] [address] Dr. Malick Haider UA PROTEIN Negative Normal NEGATIVE/ TRACE [facility] Comment on above: Performed By: #### E RUR #### [facility] [address] [place] [address] Dr. Malick Haider UR MICRO IND NOT INDICATED Normal [facility] Comment on above: Performed By: #### E RUR #### [facility] [address] [place] [address] Dr. Malick Haider Urobilinogen Qn (U) 0.2 {Balwinder'U}/dL Normal 0.2 - 1. 0 [facility] Comment on above: Performed By: #### E RUR #### [facility] [address] [place] [address] [address] Malick Hiader LIPASEon 11-13-2021 Lipase [Catalytic activity/Vol] 82.0 U/L Normal 23.0-300.0 [facility] Comment on above: Performed By: #### L IPA #### [facility] [address] [place] [address] Dr. Malick Haider PREG QUANT HCGon 11-13-2021 HCG QUANT 0 mIU/mL Normal [facility] Comment on above: Performed By: #### P REGQNT #### [facility] [address] [place] [address] Dr. Malick Haider HCG RANGE SEE BELOW Normal [facility] Comment on above: Result Comment: 5-50 0-1 WEEK 40-300 1-2 WEEKS 100-1,000 2-3 WEEKS 500-6,000 3-4 WEEKS 5,000-200,000 1-2 MONTHS 10,000-100,000 2-3 MONTHS 3,000-50,000 2ND TRIMESTER 1,000-50,000 3RD TRIMESTER Performed By: #### P REGQNT #### [facility] [address] [place] [address] Dr. Malick Haider URon 11-13-2021 , QUAL Negative Normal NEGATIVE [facility] Comment on above: Performed By: #### P REGU #### [facility] [address] [place] [address] Dr. Malick Haider PROF 14(COMP METB)on 22 AGE Normal [facility] Comment on above: Performed By: #### C MP #### [facility] [address] [place] [address] Dr. Malick Haider Albumin [Mass/Vol] 3.8 g/dL Normal 3.5-5.[address] [facility] Comment on above: Performed By: #### C MP #### [facility] [address] [place] [address] Dr. Malick Haider Albumin/Globulin [Mass ratio] 1.2 {ratio} Normal [facility] Comment on above: Performed By: #### C MP #### [facility] [address] [place] [address] Dr. Malick Haider ALP [Catalytic activity/Vol] 69 U/L Normal 65-260 [facility] Comment on above: Performed By: #### C MP #### [facility] [address] [address] [address] Malick Haider ALT [Catalytic activity/Vol] 19 U/L Normal 9-52 [facility] Comment on above: Performed By: #### C MP #### [facility] [address] [address] [address] Malick Haider Anion gap [Moles/Vol] 14.1 mmol/L Normal [facility] Comment on above: Performed By: #### C MP #### [facility] [address] [place] [address] Dr. Malick Haider AST [Catalytic activity/Vol] 8 U/L Critically low 14-36 [facility] Comment on above: Performed By: #### C MP #### [facility] [address] [place] [address] Dr. Malick Haider Bilirubin [Mass/Vol] 0.5 mg/dL Normal 0.2-1.3 [facility] Comment on above: Performed By: #### C MP #### [facility] [address] [place] [address] Dr. Malick Haider Calcium [Mass/Vol] 9.2 mg/dL Normal 8.4-10.2 [facility] Comment on above: Performed By: #### C MP #### [facility] [address] [place] [address] Dr. Malick Haider Chloride [Moles/Vol] 106 mmol/L Normal 98-107 [facility] Comment on above: Performed By: #### C MP #### [facility] [address] [place] [address] Dr. Malick Haider CO2 [Moles/Vol] 24.9 mmol/L Normal 22.0-30.0 [facility] Comment on above: Performed By: #### C MP #### [facility] [address] [address] [address] Malick Haider Creatinine [Mass/Vol] 0.56 mg/dL Normal 0.52-1.04 [facility] Comment on above: Performed By: #### C MP #### [facility] [address] [address] [address] Malick Haider EGFR-AF [place] Normal >=60 [facility] Comment on above: Performed By: #### C MP #### [facility] [address] [address] [address] Malick Haider EGFR-NON AF [place] Normal >=60 [facility] Comment on above: Performed By: #### C MP #### [facility] [address] [place] [address] Dr. Malick Haider Globulin (S) [Mass/Vol] 3.2 g/dL Normal [facility] Comment on above: Performed By: #### C MP #### [facility] [address] [place] [address] Dr. Malick Haider Glucose [Mass/Vol] 95 mg/dL Normal 74-[address] [facility] Comment on above: Performed By: #### C MP #### [facility] [address] [place] [address] Dr. Malick Haider Potassium [Moles/Vol] 4.0 mmol/L Normal 3.4-5.0 [facility] Comment on above: Performed By: #### C MP #### [facility] [address] [place] [address] Dr. Malick Haider Protein [Mass/Vol] 7.0 g/dL Normal 6.1-8.[address] [facility] Comment on above: Performed By: #### C MP #### [facility] [address] [place] [address] Dr. Malick Haider Sodium [Moles/Vol] 141 mmol/L Normal 137-145 [facility] Comment on above: Performed By: #### C MP #### [facility] [address] [place] [address] Dr. Malick Haider Urea nitrogen [Mass/Vol] 9.0 mg/dL Normal 6.4-19.3 [facility] Comment on above: Performed By: #### C MP #### [facility] [address] [address] [address] Malick Haider Urea nitrogen/Creatinine [Mass ratio] 16.1 mg/mg Normal [facility] Comment on above: Performed By: #### C MP #### [facility] [id number] Malick Haider Vital Signs Date Time Vital Sign Value Performing Clinician Facility 02-08-2025 13:48-0400 Body mass index (BMI) [Ratio] 38.43 kg/m2 [facility] 02-08-2025 13:48-0400 Body weight 101.61 kg [facility] 02-08-2025 13:48-0400 Diastolic blood pressure 78 mm[Hg] [facility] 02-08-2025 13:48-0400 Systolic blood pressure 122 mm[Hg] [facility] 01-25-2025 13:53-0400 Body mass index (BMI) [Ratio] 38.12 kg/m2 [facility] 01-25-2025 13:53-0400 Body weight 100.79 kg [facility] 01-25-2025 13:53-0400 Diastolic blood pressure 68 mm[Hg] [facility] 01-25-2025 13:53-0400 Systolic blood pressure 132 mm[Hg] [facility] 12-28-2024 09:33-0400 Body mass index (BMI) [Ratio] 38.11 kg/m2 [facility] 12-28-2024 09:33-0400 Body weight 100.7 kg [facility] 12-28-2024 09:33-0400 Diastolic blood pressure 78 mm[Hg] [facility] 12-28-2024 09:33-0400 Systolic blood pressure 124 mm[Hg] [facility] 11-30-2024 08:45-0400 Body mass index (BMI) [Percentile] Per age and sex 98.06 % [facility] 11-30-2024 08:45-0400 Body mass index (BMI) [Ratio] 37.42 kg/m2 [facility] 11-30-2024 08:45-0400 Body weight 98.88 kg [facility] 11-30-2024 08:45-0400 Diastolic blood pressure 62 mm[Hg] [facility] 11-30-2024 08:45-0400 Systolic blood pressure 120 mm[Hg] [facility] 11-02-2024 09:03-0500 Body mass index (BMI) [Percentile] Per age and sex 98.38 % [facility] 11-02-2024 09:03-0500 Body mass index (BMI) [Ratio] 38.28 kg/m2 [facility] 11-02-2024 09:03-0500 Body weight 101.15 kg [facility] 11-02-2024 09:03-0500 Diastolic blood pressure 80 mm[Hg] [facility] 11-02-2024 09:03-0500 Systolic blood pressure 124 mm[Hg] [facility] 11-01-2024 17:28-0500 Body height 162.56 cm [facility] 11-01-2024 17:28-0500 Body mass index (BMI) [Percentile] Per age and sex 98.3 % [facility] 11-01-2024 17:28-0500 Body mass index (BMI) [Ratio] 38 kg/m2 [facility] 11-01-2024 17:28-0500 Body temperature 97.9 [degF] [facility] 11-01-2024 17:28-0500 Body weight 100.41 kg [facility] 11-01-2024 17:28-0500 Diastolic blood pressure 85 mm[Hg] [facility] 11-01-2024 17:28-0500 Heart rate 98 /min [facility] 11-01-2024 17:28-0500 Respiratory rate 18 /min [facility] 11-01-2024 17:28-0500 SaO2% (BldA) [Mass fraction] 99 % [facility] 11-01-2024 17:28-0500 Systolic blood pressure 125 mm[Hg] [facility] 09-28-2024 11:19-0500 Body mass index (BMI) [Percentile] Per age and sex 98.24 % [facility] 09-28-2024 11:19-0500 Body mass index (BMI) [Ratio] 37.76 kg/m2 [facility] 09-28-2024 11:19-0500 Body weight 99.79 kg [facility] 09-28-2024 11:19-0500 Diastolic blood pressure 80 mm[Hg] [facility] 09-28-2024 11:19-0500 Systolic blood pressure 128 mm[Hg] [facility] 08-30-2024 13:50-0500 Body height 162.6 cm Melissa Dailey [employer] Work Phone: [facility] 06-10-2024 14:58-0400 Body height 160.02 cm [facility] 06-10-2024 14:58-0400 Body mass index (BMI) [Percentile] Per age and sex 98.4 % [facility] 06-10-2024 14:58-0400 Body mass index (BMI) [Ratio] 38.2 kg/m2 [facility] 06-10-2024 14:58-0400 Body temperature 98.2 [degF] [facility] 06-10-2024 14:58-0400 Body weight 98.08 kg [facility] 06-10-2024 14:58-0400 Diastolic blood pressure 78 mm[Hg] [facility] 06-10-2024 14:58-0400 Heart rate 82 /min [facility] 06-10-2024 14:58-0400 Respiratory rate 16 /min [facility] 09-20-2024 14:58-0400 SaO2% (BldA) [Mass fraction] 99 % [facility] 06-10-2024 14:58-0400 Systolic blood pressure 109 mm[Hg] [facility] 08-07-2023 10:30-0500 Body height 160.02 cm Liset Aguilera Other [employer] Other 08-07-2023 10:30-0500 Body mass index (BMI) [Ratio] 35.03 kg/m2 Liset Aguilera Other [employer] Other 08-07-2023 10:30-0500 Body temperature 98 [degF] Liset Aguilera Other [employer] Other 08-07-2023 10:30-0500 Body weight 89.72 kg Liset Aguilera Other [employer] Other 08-07-2023 10:30-0500 Respiratory rate 18 /min Liset Aguilera Other [employer] Other 08-07-2023 10:30-0500 SaO2% (BldA) [Mass fraction] 98 % Liset Aguilera Other [employer] Other 07-20-2023 12:20-0400 Body height 160.02 cm Tessa Figueroa Other [employer] Other 07-20-2023 12:20-0400 Body mass index (BMI) [Ratio] 35.6 kg/m2 Tessa Figueroa Other [employer] Other 07-20-2023 12:20-0400 Body temperature 98.9 [degF] Tessa Figueroa Other [employer] Other 07-20-2023 12:20-0400 Body weight 91.17 kg Tessa Lazcanoarney Other [employer] Other 07-20-2023 12:20-0400 Diastolic blood pressure 84 mm[Hg] Tessa Lazcanoarney Other [employer] Other 07-20-2023 12:20-0400 Respiratory rate 19 /min Tessa Lazcanoarney Other [employer] Other 07-20-2023 12:20-0400 SaO2% (BldA) [Mass fraction] 99 % Tessa Lazcanoarney Other [employer] Other 07-20-2023 12:20-0400 Systolic blood pressure 113 mm[Hg] Tessa Lazcanoarney Other [employer] Other 03-05-2023 12:40-0400 Body height 160.02 cm Riya Edgar Other [employer] Other 03-05-2023 12:40-0400 Body mass index (BMI) [Ratio] 38.83 kg/m2 Riya Edgar Other [employer] Other 03-05-2023 12:40-0400 Body temperature 98.2 [degF] Riya Edgar Other [employer] Other 03-05-2023 12:40-0400 Body weight 99.43 kg Riya Edgar Other [employer] Other 03-05-2023 12:40-0400 Respiratory rate 18 /min Riya Edgar Other [employer] Other 03-05-2023 12:40-0400 SaO2% (BldA) [Mass fraction] 98 % Riya Edgar Other [employer] Other 01-29-2023 16:20-0400 Body height 160.02 cm Liset Aguilera Other [employer] Other 01-29-2023 16:20-0400 Body mass index (BMI) [Ratio] 38.4 kg/m2 Liset Aguilera Other [employer] Other 01-29-2023 16:20-0400 Body temperature 100.1 [degF] Liset Aguilera Other [employer] Other 01-29-2023 16:20-0400 Body weight 98.34 kg Liset Aguilera Other [employer] Other 01-29-2023 16:20-0400 Respiratory rate 20 /min Liset Aguilera Other [employer] Other 01-29-2023 16:20-0400 SaO2% (BldA) [Mass fraction] 98 % Liset Aguilera Other [employer] Other 11-21-2022 16:05-0500 Body height 160.02 cm Liset Aguilera Other [employer] Other 11-21-2022 16:05-0500 Body mass index (BMI) [Ratio] 38.26 kg/m2 Liset Aguilera Other [employer] Other 11-21-2022 16:05-0500 Body temperature 98.4 [degF] Liset Aguilera Other [employer] Other 11-21-2022 16:05-0500 Body weight 97.98 kg Liset Aguilera Other [employer] Other 11-21-2022 16:05-0500 Respiratory rate 18 /min Liset Aguilera Other [employer] Other 11-21-2022 16:05-0500 SaO2% (BldA) [Mass fraction] 97 % Liset Aguilera Other [employer] Other 07-08-2022 16:30-0400 Body height 160.02 cm Lynsey Cortezault Other [employer] Other 07-08-2022 16:30-0400 Body mass index (BMI) [Ratio] 36.31 kg/m2 Lynsey Rubin Other [employer] Other 07-08-2022 16:30-0400 Body temperature 97.8 [degF] Lynsey Rubin Other [employer] Other 07-08-2022 16:30-0400 Body weight 92.99 kg Lynsey Rubin Other [employer] Other 07-08-2022 16:30-0400 Diastolic blood pressure 70 mm[Hg] Lynsye Rubin Other [employer] Other 07-08-2022 16:30-0400 Respiratory rate 18 /min Lynsey Rubin Other [employer] Other 07-08-2022 16:30-0400 SaO2% (BldA) [Mass fraction] 98 % Lynsey Conklin Other [employer] Other 07-08-2022 16:30-0400 Systolic blood pressure 118 mm[Hg] Lynsey Conklin Other [employer] Other 03-27-2022 12:00-0400 Body height 160.02 cm Lynsey Conklin Other [employer] Other 03-27-2022 12:00-0400 Body mass index (BMI) [Ratio] 35.07 kg/m2 Lynsey Conklin Other [employer] Other 03-27-2022 12:00-0400 Body temperature 98.2 [degF] Lynsey Conklin Other [employer] Other 03-27-2022 12:00-0400 Body weight 89.81 kg Lynsey Conklin Other [employer] Other 03-27-2022 12:00-0400 Diastolic blood pressure 72 mm[Hg] Lynsey Conklni Other [employer] Other 03-27-2022 12:00-0400 Respiratory rate 18 /min Lynsey Conklin Other [employer] Other 03-27-2022 12:00-0400 SaO2% (BldA) [Mass fraction] 98 % Lynsey Cortezault Other [employer] Other 03-27-2022 12:00-0400 Systolic blood pressure 127 mm[Hg] Lynsey Cortezault Other [employer] Other 01-28-2022 14:00-0400 Body height 160.02 cm Lynsey Conklin Other [employer] Other 01-28-2022 14:00-0400 Body mass index (BMI) [Ratio] 36.49 kg/m2 Lynsey Conklin Other [employer] Other 01-28-2022 14:00-0400 Body temperature 98.1 [degF] Lynsey Conklin Other [employer] Other 01-28-2022 14:00-0400 Body weight 93.44 kg Lynsey Conklin Other [employer] Other 01-28-2022 14:00-0400 Diastolic blood pressure 80 mm[Hg] Lynsey Conklin Other [employer] Other 01-28-2022 14:00-0400 Respiratory rate 18 /min Lynsey Conklin Other [employer] Other 01-28-2022 14:00-0400 SaO2% (BldA) [Mass fraction] 99 % Lynsey Conklin Other [employer] Other 01-28-2022 14:00-0400 Systolic blood pressure 123 mm[Hg] Lynsey Conklin Other [employer] Other 11-12-2021 16:15-0500 Body height 157.48 cm Sharonda Mercado Other [employer] Other 11-12-2021 16:15-0500 Body mass index (BMI) [Ratio] 37.49 kg/m2 Sharonda Mercado Other [employer] Other 11-12-2021 16:15-0500 Body temperature 98.2 [degF] Sharonda Mercado Other [employer] Other 11-12-2021 16:15-0500 Body weight 92.99 kg Sharonda Mercado Other [employer] Other 11-12-2021 16:15-0500 Diastolic blood pressure 54 mm[Hg] Sharonda Mercado Other [employer] Other 11-12-2021 16:15-0500 Respiratory rate 18 /min Sharonda Mercado Other [employer] Other 11-12-2021 16:15-0500 SaO2% (BldA) [Mass fraction] 98 % Sharonda Mercado Other [employer] Other 11-12-2021 16:15-0500 Systolic blood pressure 108 mm[Hg] Sharonda Mercado Other [employer] Other Encounters Encounter Date Encounter Type Care Provider Facility Start: 02-08-2025 End: 02-08-2025 Subsequent care visit [facility] [employer] [facility] Comment on above: GA: 29w2d Start: 01-25-2025 End: 01-25-2025 Subsequent care visit [facility] [employer] [facility] Comment on above: GA: 27w2d Start: 01-25-2025 End: 01-25-2025 ambulatory NO PCP NO PCP [facility] Start: 01-20-2025 End: 01-20-2025 Orders Only Melissa Dailey [employer] Work Phone: [facility] Comment on above: Abnormal glucose aster erance test in (Primary Dx) Start: 01-19-2025 ambulatory MELISSA DAILEY [facility] Start: 01-19-2025 ambulatory [facility] Start: 01-11-2025 End: 01-11-2025 ambulatory [facility] Start: 01-10-2025 End: 01-10[facility] Start: 12-28-2024 End: 12-28-2024 Subsequent care visit [facility] [employer] [facility] Comment on above: GA: 23w2d Start: 12-28-2024 End: 12-28-2024 ambulatory NO PCP NO PCP [facility] Start: 12-08-2024 End: 12-08-2024 Orders Only Liberty Marin [employer] CON[employer] [facility] Comment on above: Fall, initial encoun ter (Primary Dx) Start: 12-07-2024 End: 12-07-2024 ambulatory [facility] Start: 12-07-2024 End: 12-07-2024 Emergency department patient visit NO PCP NO PCP [facility] Start: 12-06-2024 End: 12-06-2024 ambulatory MELISSA Zelaya [facility] Start: 11-30-2024 End: 11-30-[address] [facility] Start: 11-30-2024 End: 11-30-2024 Subsequent care visit [facility] [employer] [facility] Comment on above: GA: 19w2d Start: 11-30-2024 End: 11-30-2024 ambulatory NO PCP NO PCP [facility] Start: 11-02-2024 End: 11-02-2024 ambulatory MELISSA Zelaya [facility] Start: 11-02-2024 End: 11-02-2024 Subsequent care visit [facility] Ob [employer] [facility] Comment on above: GA: 15w2d Start: 11-02-2024 End: 11-02-2024 ambulatory NO PCP NO PCP [facility] Start: 11-01-2024 End: 11-01-2024 ambulatory [facility] Work Phone: Start: 11-01-2024 End: 11-01-2024 Patient encounter procedure [facility] Work Phone: Start: 10-27-2024 End: 10-27-2024 Telephone encounter Melissa Dailey [employer] Work Phone: [facility] Start: 10-19-2024 End: 10-19-2024 Telephone encounter Liberty Marin CMA [facility] Start: 10-13-2024 End: 10-13-2024 Telephone encounter Liberty Marin CMA [facility] Start: 10-05-2024 End: 10-05-2024 ambulatory Tata Peng [employer] Work Phone: [facility] Comment on above: Genetic screening (P rimary Dx) Start: 09-28-2024 End: 09-28-2024 Initial care visit [facility] Ob [employer] Content [employer] [facility] Comment on above: GA: 10w2d Start: 09-28-2024 End: 09-28-2024 ambulatory NO PCP NO PCP [facility] Start: 09-28-2024 End: 09-28-2024 ambulatory MELISSA DAILEY [facility] Start: 09-09-2024 End: 09-09-2024 Orders Only Melissa Dailey [employer] Work Phone: [facility] Comment on above: Cystitis of pregnanc y in first trimester (Primary Dx) Start: 09-06-2024 End: 09-06-2024 ambulatory MELISSA OROPEZA [facility] Start: 08-30-2024 End: 08-30-2024 Initial care visit Melissa Dailey [employer] Work Phone: [facility] Comment on above: First trimester preg mark anthony (Primary Dx) Start: 08-30-2024 End: 08-30-2024 [facility] Start: 08-08-2024 End: 08-08-2024 ambulatory LYNSEY Zelaya [facility] Start: 08-05-2024 End: 08-05-2024 ambulatory LYNSEY Zelaya [facility] Start: 08-05-2024 End: 08-05-2024 Telephone encounter Do Clark [facility] Start: 06-10-2024 End: 06-10-2024 ambulatory [facility] Work Phone: Start: 06-10-2024 End: 06-10-2024 Patient encounter procedure [facility] Work Phone: Start: 08-07-2023 End: 08-07-2023 ambulatory Liset Aguilera Other [employer] Other Start: 08-07-2023 Office outpatient vi sit 25 minutes Liset Aguilera [facility] Start: 07-20-2023 End: 07-20-2023 ambulatory Tessa Figueroa Other [employer] Other Start: 07-20-2023 Office outpatient vi sit 25 minutes Tessa Figueroa [facility] Start: 07-20-2023 Physical examination Tessa Weir y [facility] Start: 03-05-2023 (URG) Urgent Care Visit Riya Vuong y [facility] Start: 03-05-2023 End: 03-05-2023 ambulatory Riya Edgar Other [employer] Other Start: 01-29-2023 End: 01-29-2023 ambulatory Liset Aguilera Other [employer] Other Start: 01-29-2023 Office outpatient vi sit 25 minutes Liset Aguilera [facility] Start: 11-21-2022 End: 11-21-2022 ambulatory Liset Aguilera Other [employer] Other Start: 11-21-2022 Office outpatient vi sit 15 minutes Liset Aguilera [facility] Start: 07-09-2022 End: 07-09-2022 ambulatory Lynsey Rubin Other [employer] Other Start: 07-09-2022 Telephone encounter Lynsey Breaul t [facility] Start: 07-08-2022 End: 07-08-2022 ambulatory Lynsey Rubin Other [employer] Other Start: 07-08-2022 Office outpatient vi sit 25 minutes Lynsey Rubin [facility] Start: 03-27-2022 End: 03-27-2022 ambulatory Lynsey Rubin Other [employer] Other Start: 03-27-2022 Office outpatient vi sit 25 minutes Lynsey Rubin [facility] Start: 03-27-2022 Telephone encounter Lynsey Breaul t [facility] Start: 01-28-2022 End: 01-28-2022 ambulatory Lynsey Rubin Other [employer] Other Start: 01-28-2022 Office outpatient vi sit 15 minutes Lynsey Rubin [facility] Start: 11-13-2021 End: 11-14-2021 ambulatory REJI VAZQUEZ Facility:[facility] Start: 11-12-2021 End: 11-12-2021 ambulatory Sharonda Mercado Other [employer] Other Start: 11-12-2021 Office outpatient vi sit 25 minutes Sharonda Mercado [facility] Plan of Treatment Date Care Activity Detail Author Start: 06-23-2028 DTaP,Tdap and Td Vaccines (7 - Td or Tdap) DTaP,Tdap and Td Vaccines (7 - Td or Tdap) [facility] Start: 02-08-2026 Adult BMI Screening Adult BMI Screen ing [facility] Start: 02-08-2026 Tobacco Screening Tobacco Screening [facility] Start: 01-25-2026 Adult BMI Screening Adult BMI Screen ing [facility] Start: 01-25-2026 Tobacco Screening Tobacco Screening [facility] Start: 01-11-2026 Adult BMI Screening Adult BMI Screen ing [facility] Start: 01-11-2026 Tobacco Screening Tobacco Screening [facility] Start: 12-28-2025 Adult BMI Screening Adult BMI Screen ing [facility] Start: 12-07-2025 Tobacco Screening Tobacco Screening [facility] Start: 11-30-2025 Adult BMI Screening Adult BMI Screen ing [facility] Start: 11-30-2025 Tobacco Screening Tobacco Screening [facility] Start: 11-02-2025 Adult BMI Screening Adult BMI Screen ing [facility] Start: 09-28-2025 Adult BMI Screening Adult BMI Screen ing [facility] Start: 09-28-2025 Screening for Chlamy indigo trachomatis Chlamydia Screening [facility] Start: 09-28-2025 Tobacco Screening Tobacco Screening [facility] Start: 08-30-2025 Tobacco Screening Tobacco Screening [facility] Start: 05-22-2025 Influenza vaccination Influenza Vacc ine [facility] Start: 02-22-2025 End: 02-22-2025 Patient encounter procedure 02/22/2025 10:30 AM EDT Routine [facility] [id number] [place] [address] [facility] Start: 02-08-2025 End: 02-08-2025 Patient encounter procedure 02/08/2025 2:00 PM EDT Routine [facility] [address] [place] [address] [facility] Start: 01-25-2025 End: 01-25-2025 Patient encounter procedure 01/25/2025 2:00 PM EDT Routine [facility] [address] [place] [address] [facility] Start: 01-18-2025 End: 12-28-2025 CBC panel - Blood by Automated count CBC without diff Lab Routine Second trimester Expected: 01/18/2025, Expires: 12/28/2025 [facility] Comment on above: Expected: 01/18/2025 , Expires: 12/28/2025 Start: 01-18-2025 End: 12-28-2025 Glucose 1h post 50g load Glucose 1h post 50g load Lab Routine Second trimester Expected: 01/18/2025, Expires: 12/28/2025 [employer] Work Phone: Comment on above: Expected: 01/18/2025 , Expires: 12/28/2025 Start: 01-18-2025 End: 12-28-2025 Syphilis Total(Unknown Syphilis Status) Syphilis Total(Unknown Syphilis Status) Lab Routine Second trimester Expected: 01/18/2025, Expires: 12/28/2025 [facility] Comment on above: Expected: 01/18/2025 , Expires: 12/28/2025 Start: 01-10-2025 End: 01-10-2025 Patient encounter procedure 01/10/2025 2:15 PM EDT Appointment [facility] [address] [place] [address] [facility] Start: 12-28-2024 End: 12-28-2024 Patient encounter procedure 12/28/2024 9:30 AM EDT Routine [facility] [address] [place] [address] [facility] Start: 12-08-2024 End: 12-08-2025 US for in second or third trimester Ultrasound greater than 14 weeks single transabdominal Imaging STAT Fall, initial encounter Expected: 12/08/2024, Expires: 12/08/2025 [facility] Work Phone: Comment on above: Expected: 12/08/2024 , Expires: 12/08/2025 Start: 12-08-2024 End: 12-08-2024 Patient encounter procedure 12/08/2024 11:00 AM EDT Appointment [facility] [address] [place] [address] Tata Peng, CUSTOMS ENTRY WRITER-CNM [address] [facility] [place] [address] [facility] Start: 12-06-2024 End: 12-06-2024 Patient encounter procedure 12/06/2024 10:00 AM EDT Appointment [facility] [address] [place] [address] Melissa Dailey, CUSTOMS ENTRY WRITER-[employer]IPAL [address] [place] [address] [facility] Start: 11-30-2024 End: 11-30-2024 Patient encounter procedure 11/30/2024 9:00 AM EDT Routine [facility] [address] [place] [address] [facility] Start: 11-02-2024 End: 11-02-2025 Bacteria identified in Urine by Culture Urine Culture Microbiology Routine UTI in , first trimester Expected: 11/02/2024 (Approximate), Expires: 11/02/2025 [facility] Work Phone: Comment on above: Expected: 11/02/2024 (Approximate), Expires: 11/02/2025 Start: 11-02-2024 End: 11-02-2025 US MFM with or without consult US MFM with or without consult Imaging Routine care, second trimester Encounter for anatomic survey Expected: 11/02/2024, Expires: 11/02/2025 [facility] Comment on above: Expected: 11/02/2024 , Expires: 11/02/2025 Start: 10-26-2024 End: 10-26-2024 Patient encounter procedure 10/26/2024 8:15 AM EST [facility] [address] [place] [address] [facility] Start: 10-05-2024 End: 10-05-2024 ambulatory 10/05/2024 10:30 AM EST Nurse Injection [facility] [address] [place] [address] Tata Peng, CUSTOMS ENTRY WRITER-CNM [address] [facility], [address] [place] [address] [facility] Start: 09-28-2024 End: 09-28-2025 Chlamydia/GC by PCR [facility] Swab Chlamydia/GC by PCR [facility] Swab Microbiology Routine care, first trimester Expected: 09/28/2024 (Approximate), Expires: 09/28/2025 [facility] Work Phone: Comment on above: Expected: 09/28/2024 (Approximate), Expires: 09/28/2025 Start: 09-19-2024 End: 09-19-2024 ambulatory 09/19/2024 3:00 PM EST Initial [facility] [address] [place] [address] Lynsey Sepulveda, CUSTOMS ENTRY WRITER-PRESCHO[employer] PRINCIPAL [address] [facility], [address] [place] [address] [facility] Start: 09-06-2024 End: 09-06-2024 Patient encounter procedure 09/06/2024 1:30 PM EST Appointment [facility] [address] [place] [id number] Melissa Dailey, CUSTOMS ENTRY WRITER-[employer] PRINCIPAL [address] [place] [address] [facility] Start: 08-30-2024 End: 08-30-2025 US transvaginal for Ultrasound less than 14 weeks with transvaginal Imaging Routine First trimester Expected: 08/30/2024, Expires: 08/30/2025 [facility] Work Phone: Comment on above: Expected: 08/30/2024 , Expires: 08/30/2025 Start: 05-22-2024 COVID-19 Vaccine ( season) COVID-19 Vaccine ( season) [facility] Start: 05-22-2024 Influenza vaccination Influenza Vacc ine [facility] Start: 12-16-2023 Adult BMI Follow Up Plan Adult BMI Follow Up Plan [facility] Start: 12-16-2023 Adult BMI Screening Adult BMI Screen ing [facility] Start: 2021 MCV (1 - 2-dose series) MCV (1 - 2-d ose series) [facility] Start: 2020 HPV Vaccines (1 - 3-dose series) HPV Vaccines (1 - 3-dose series) [facility] Start: 2018 Varicella Vaccines ( 1 of 2 - 13+ 2-dose series) Varicella Vaccines (1 of 2 - 13+ 2-dose series) [facility] Start: 2017 Depression Screening Depression Scre ening [facility] Start: 2017 Tobacco Screening Tobacco Screening [facility] Start: 2012 DTaP,Tdap and Td Vaccines (1 - Tdap) DTaP,Tdap and Td Vaccines (1 - Tdap) [facility] Start: 2006 Hepatitis A Vaccines (1 of 2 - 2-dose series) Hepatitis A Vaccines (1 of 2 - 2-dose series) [facility] Start: 2006 MMR Vaccines (1 of 2 - Standard series) MMR Vaccines (1 of 2 - Standard series) [facility] Start: 2005 Hepatitis B Vaccines (1 of 3 - 3-dose series) Hepatitis B Vaccines (1 of 3 - 3-dose series) [facility] Start: 2005 Screening for Chlamy indigo trachomatis Chlamydia Screening [facility] Start: 2005 Tobacco Counseling Tobacco Counselin g [facility] End: 11-02-2025 AFP Single Marker Scrn, Maternal, Serum AFP Single Marker Scrn, Maternal, Serum Lab Routine care, second trimester 1 Occurrences starting 11/02/2024 until 11/02/2025 [facility] Comment on above: 1 Occurrences starti ng 11/02/2024 until 11/02/2025 End: 08-30-2025 Bacteria identified in Urine by Culture Urine Culture Microbiology Routine First trimester 1 Occurrences starting 08/30/2024 until 08/30/2025 [facility] Comment on above: 1 Occurrences starti ng 08/30/2024 until 08/30/2025 End: 10-05-2025 Carrier Study Non-[facility] Carrier Study Non[facility] Lab Routine Genetic screening 1 Occurrences starting 10/05/2024 until 10/05/2025 [facility] Comment on above: 1 Occurrences starti ng 10/05/2024 until 10/05/2025 End: 08-30-2025 CBC panel - Blood by Automated count CBC without diff Lab Routine First trimester 1 Occurrences starting 08/30/2024 until 08/30/2025 [facility] Comment on above: 1 Occurrences starti ng 08/30/2024 until 08/30/2025 End: 08-30-2025 Drug Screen, Urine Drug Screen, Urine Lab Routine First trimester 1 Occurrences starting 08/30/2024 until 08/30/2025 [facility] Comment on above: 1 Occurrences starti ng 08/30/2024 until 08/30/2025 End: 10-05-2025 Free Cell DNA (Non-[facility]) Free Cell DNA (Non-[facility]) Lab Routine Genetic screening 1 Occurrences starting 10/05/2024 until 10/05/2025 [facility] Comment on above: 1 Occurrences starti ng 10/05/2024 until 10/05/2025 End: 08-30-2025 Glucose 1h post 50g load Glucose 1h post 50g load Lab Routine First trimester 1 Occurrences starting 08/30/2024 until 08/30/2025 [facility] Comment on above: 1 Occurrences starti ng 08/30/2024 until 08/30/2025 End: 01-20-2026 Glucose tolerance, 3 hours 100gm load Glucose tolerance, 3 hours 100gm load Lab Routine Abnormal glucose tolerance test in 1 Occurrences starting 01/20/2025 until 01/20/2026 [employer] Work Phone: Comment on above: 1 Occurrences starti ng 01/20/2025 until 01/20/2026 End: 08-05-2025 hCG, quantitative, hCG, quantitative, Lab Routine Positive urine test every 2 days for 6 Occurrences starting 08/05/2024 until 08/05/2025 [employer] Work Phone: Comment on above: every 2 days for 6 O ccurrences starting 08/05/2024 until 08/05/2025 End: 08-30-2025 Hepatitis panel, acute Hepatitis panel, acute Lab Routine First trimester 1 Occurrences starting 08/30/2024 until 08/30/2025 [facility] Comment on above: 1 Occurrences starti ng 08/30/2024 until 08/30/2025 End: 08-30-2025 HIV 1&2 AB/AG Screen (P24 AG) HIV 1&2 AB/AG Screen (P24 AG) Lab Routine First trimester 1 Occurrences starting 08/30/2024 until 08/30/2025 [facility] Comment on above: 1 Occurrences starti ng 08/30/2024 until 08/30/2025 End: 08-30-2025 Rubella IGG immune status Rubella IGG immune status Lab Routine First trimester 1 Occurrences starting 08/30/2024 until 08/30/2025 [facility] Comment on above: 1 Occurrences starti ng 08/30/2024 until 08/30/2025 End: 08-30-2025 Syphilis Total(Unknown Syphilis Status) Syphilis Total(Unknown Syphilis Status) Lab Routine First trimester 1 Occurrences starting 08/30/2024 until 08/30/2025 [facility] Comment on above: 1 Occurrences starti ng 08/30/2024 until 08/30/2025 End: 08-30-2025 Type and screen Type and screen Blood Bank Routine First trimester 1 Occurrences starting 08/30/2024 until 08/30/2025 [facility] Comment on above: 1 Occurrences starti ng 08/30/2024 until 08/30/2025 End: 08-30-2025 Urinalysis Urinalysis Lab Routine First trimester 1 Occurrences starting 08/30/2024 until 08/30/2025 [facility] Comment on above: 1 Occurrences starti ng 08/30/2024 until 08/30/2025 End: 08-30-2025 Varicella zoster antibody, IgG Varicella zoster antibody, IgG Lab Routine First trimester 1 Occurrences starting 08/30/2024 until 08/30/2025 [facility] Comment on above: 1 Occurrences starti ng 08/30/2024 until 08/30/2025 [facility] Immunizations Immunization Date Immunization Notes Care Provider Fa cility 09-28-2024 influenza, seasonal, injectable, preservative free [facility] Web Content Developer [facility] 09-28-2024 Immunization, In Cli kelly,; Translations: [Drug or medicament (substance)] [facility] 09-28-2024 influenza virus vacc ine, unspecified formulation [facility] Payers Date Payer Category Payer Medicaid [id number] 2022 Medicaid [id number] 2. [id number] 2005 Unknown [id number] 2.16.840.1.263063.3.579.2.1286 2005 Unknown [id number] 2.16.840.1.347129.3.579.2.1286 2005 Unknown [id number] 2.16.840.1.404092.3.579.2.128 2005 Unknown [id number] 2.16840.1.059769.3.579.2.1285 2005 Unknown [id number] 2.16840.1.885052.3.579.2.1285 2005 Unknown [id number] 2.840.1.382864.3.579.2.1285 2005 Unknown [id number] 2.840.1.762253.3.579.2.128 2005 Unknown [id number] 2.840.1.091151.3.579.2.1285 2005 Unknown [id number] 2.840.1.996841.3.579.2.1285 2005 Unknown [id number] 2..1.709260.3.579.2.1285 2005 Unknown [id number] 2.0.1.686032.3.579.2.1285 2005 Unknown [id number] 2..1.095095.3.579.2.1285 2005 Unknown [id number] 2.0.1.268739.3.579.2.1285 2005 Unknown [id number] 2..1.002246.3.579.2.1285 2005 Unknown [id number] 2.840.1.780492.3.579.2.1285 2005 Unknown [id number] 2.840.1.603024.3.579.2.1285 2005 Unknown [id number] 2.840.1.906364.3.579.2.1285 2005 Unknown [id number] 2.840.1.656601.3.579.2.1285 2005 Unknown [id number] 2.0.1.061518.3.579.2.1286 2005 Unknown [id number] 2.16.840.1.994207.3.579.2.1286 2005 Unknown [id number] 2.16.840.1.033496.3.579.2.1286 2005 Unknown [id number] 2.16.840.1.846291.3.579.2.1286 2005 Unknown [id number] 2.16.840.1.169194.3.579.2.1286 1978 Unknown [id number] 2.16.84 0.1.056767.3.579.2.593 1959 Unknown [id number] 1959 Unknown [id number] Medicaid [id number] 2. 16.840.1.403947.19 Private Health Insurance [id number] 2.16.840.1.264802.19 Self-pay Self Pay [id number] Unknown [facility] [id number] Social History Date Type Detail Facility Start: 08-30-2024 End: 02-08-2025 Sex Assigned At [facility] Other Start: 06-10-2024 End: 08-30-2024 Tobacco smoking status NHIS Never smoked tobacco (finding) [facility] Start: 2005 Sex Assigned At Female F [facility] Start: 08-30-2024 End: 01-25-2025 Tobacco use and exposure Smokeless tobacco [facility]-user [facility] Start: 08-30-2024 End: 01-11-2025 Alcoholic beverage intake Ex-drinker (finding) [facility] Start: 08-30-2024 End: 02-08-2025 History of Social function [facility] Start: 07-24-2024 [facility] Start: 2005 Sex assigned at Not on file P [facility] Start: 04-26-2015 End: 11-01-2024 Sex Female (finding) [facility] Tobacco smoking status [facility] Tobacco smoking consumption unknown [facility] Start: 01-25-2025 Tobacco smoking status [facility] Occasional tobacco smoker [facility] History of tobacco use Cigarette Smoker [facility] History of tobacco use Tobacco Use Types Packs/Day Years Used Date Smoking Tobacco: Some Days Cigarettes 1 4 Vaping/E-cigarettes Smokeless Tobacco: Never [facility] Start: 01-25-2025 End: 02-08-2025 Alcoholic beverage intake Lifetime non-drinker (finding) [facility] Clinical Notes 11-12-2021 to 02-08-2025 Melissa Dailey, [facility] - 02/08/2025 2:00 PM Rojelio Dailey, [facility] - 01/25/2025 2:00 PM Rojelio Dailey, [facility] - 12/28/2024 9:30 AM Shreyas Marin [facility] - 12/08/2024 9:55 AM EDT Note Date & Type Note Facility 02-08-2025 History of Presen t illness Narrative Routine OB visit 19 y.o. at 29w2d. She denies cramping or abdominal pain. She denies vaginal bleeding or vaginal loss of fluid. She reports positive movements. Tolerating regular diet without emesis. No concerns today. Vitals: 02/08/25 1348 BP: 122/78 Weight: 101.6 kg (224 lb) complicated by: Patient Active Problem List Diagnosis Primiparity Obesity affecting Rubella non-immune status, antepartum Susceptible to varicella (non-immune), currently UTI in , first trimester Fall on same level from tripping Fall Abnormal glucose tolerance test in 1. Reviewed signs of labor, preeclampsia, and danger signs. 2. kick count instructions given with kick count card provided. 3. Discussed Plan: Pain control in labor: epidural Plan for feeding : plans to breastfeed Patient has a breast pump. Project Buyer: list provided today control: unsure 4. 28 wk labs reviewed. Rhogam not needed. 5. Encouraged tdap. Pt desires at next visit. 6. Educational information given. 7. Questions answered. 8. Return 2 wks. CIERA Horvath 02/08/25 1400 documented in this encounter [facility] 01-25-2025 History of Presen t illness Narrative Routine OB visit 19 y.o. at 27w2d. She denies cramping or abdominal pain. She denies vaginal bleeding or vaginal loss of fluid. Good movement. Patient is requesting a work restriction note today, states her employer is wanting her to work every day for 8-10 hours with no breaks. Vitals: 01/25/25 1353 BP: 132/68 Weight: 100.8 kg (222 lb 3.2 oz) complicated by: Patient Active Problem List Diagnosis Primiparity Obesity affecting Rubella non-immune status, antepartum Susceptible to varicella (non-immune), currently UTI in , first trimester Fall on same level from tripping Fall Abnormal glucose tolerance test in 1. Work note provided. 2. Reviewed signs of labor, preeclampsia, and additional warning signs of . 3. Encouraged [facility]. Pt to call if criteria not met or for decrease of FM by 50% over 24 hr. 4. 28 wk labs reviewed. Patient failed one hour gtt, but passed three hour. 5. Discussed childbirth and classes. Phone number given to schedule. 6. Discussed Tdap and information provided. Will offer at next appointment. 7. Educational information given. 8. Questions answered. 9. Return 4 wks. CIERA Horvath 01/25/25 1413 documented in this encounter [facility] 12-28-2024 History of Presen t illness Narrative Routine OB visit 19 y.o. at 23w2d. She denies cramping or abdominal pain. She denies vaginal bleeding or vaginal loss of fluid. Tolerating regular diet without emesis. She reports positive movements. No other concerns today. The patient reports that there is not domestic violence in her life. Vitals: 12/28/24 0933 BP: 124/78 Weight: 100.7 kg (222 lb) complicated by: Patient Active Problem List Diagnosis Primiparity Obesity affecting Rubella non-immune status, antepartum Susceptible to varicella (non-immune), currently UTI in , first trimester Fall on same level from tripping 1. Anatomy scan results reviewed with patient. Appt scheduled 01/10/25 to complete survey. 2. Reviewed signs of labor, preeclampsia, and additional warning signs of . 3. Encouraged [facility]. Pt to call if criteria not met or for decrease of FM by 50% over 24 hr. 4. 28 wk labs discussed and ordered. Patient to get them done before next visit. Patient is RH positive. 5. Discussed childbirth and classes. 6. Discussed Tdap and information provided. Will offer after 28 weeks. 7. Patient has received a flu shot. 8. Educational information given. 9. Questions answered. 10. Return 4 wks. CIERA Horvath 12/28/24 0958 documented in this encounter [facility] 12-08-2024 Miscellaneous Notes Formattin g of this note might be different from the original. ----- Message from DUNG Ponce sent at 12/07/2024 9:40 PM EDT ----- Please order ultrasound to be done 12/08/2024, to evaluate well being and placental integrity as pt. Had a fall the evening of 12/07/2024. Pt. Advised if she does not hear from our office by late morning 12/08 she is to call the office for assistance w/this matter. Please facilitate scheduling. Thank you! Tata Pt called office and ultrasound order was placed. documented in this encounter [facility] 12-08-2024 Telephone encount er Note ----- Message from DUNG Ponce sent at 12/07/2024 9:40 PM EDT ----- Please order ultrasound to be done 12/08/2024, to evaluate well being and placental integrity as pt. Had a fall the evening of 12/07/2024. Pt. Advised if she does not hear from our office by late morning 12/08 she is to call the office for assistance w/this matter. Please facilitate scheduling. Thank you! Tata [facility] 12-08-2024 Telephone encount er Note Pt called office and ultrasound order was placed. [facility] 12-08-2024 History of Presen t illness Narrative Ultrasound ordered per Tata Peng CNM documented in this encounter [facility] 12-08-2024 Miscellaneous Notes Addended by: LIBERTY MARIN on: 12/08/2024 09:58 AM Modules accepted: Orders documented in this encounter [facility] 12-08-2024 Note Addended by: LIBERTY MARIN on: 12/08/2024 09:58 AM Modules accepted: Orders [facility] 11-30-2024 History of Presen t illness Narrative Routine OB visit 18 y.o. at 19w2d. She denies cramping or abdominal pain. She denies vaginal bleeding or vaginal loss of fluid. Tolerating regular diet without emesis. She reports movements are present. Patient is unsure how she wants to feed infant. She denies hx breast surgery. Vitals: 11/30/24 0845 BP: 120/62 Weight: 98.9 kg (218 lb) complicated by: Patient Active Problem List Diagnosis Primiparity Obesity affecting Rubella non-immune status, antepartum Susceptible to varicella (non-immune), currently UTI in , first trimester 1. Survey US scheduled for 12/06/24 2. Counseled regarding safe use of safety belt in , importance of exercise and good nutrition, avoidance of supine position and reviewed danger signs. 3. Patient received a flu shot 09/28/24. 4. Answered all questions 5. Educational information given. 6. Return 4 wks. CIERA Horvath 11/30/24 0857 Pt has MFM anatomy scan scheduled on 12-06. Pt has not done MSAFP yet, educated Pt on time for labs. Pt c/o dry cough x 1 week. documented in this encounter [facility] 11-02-2024 History of Presen t illness Narrative Routine OB visit 18 y.o. at 15w2d. She denies cramping or abdominal pain. She denies vaginal bleeding or vaginal loss of fluid. Tolerating regular diet without emesis. No concerns today. Patient took all of the abx for UTI. Denies urinary symptoms. Vitals: 11/02/24 0903 BP: 124/80 Weight: 101.2 kg (223 lb) complicated by: Patient Active Problem List Diagnosis Primiparity Obesity affecting Rubella non-immune status, antepartum Susceptible to varicella (non-immune), currently UTI in , first trimester 1. Pt completed NIPS (low risk / male) and carrier screening (negative). 2. Discussed option for MSAFP between 16-20 weeks. Order placed. 3. 22 wk Survey US ordered. 4. danger signs reviewed. 5. Patient received flu shot 09/28/24. 6. DANA for UTI sent. 7. Educational information given. 8. Questions answered. 9. Return 4 wks. CIERA Horvath 11/02/24 09 documented in this encounter [facility] 10-27-2024 Miscellaneous Notes Formattin g of this note might be different from the original. LVM for Patient to call Office to rescheduled missed Return OB appointment on 10/26/24. documented in this encounter [facility] 10-27-2024 Telephone encount er Note LVM for Patient to call Office to rescheduled missed Return OB appointment on 10/26/24. [facility] [facility] 10-19-2024 Miscellaneous Notes Formattin g of this note might be different from the original. Called and lvm to call office back regarding Gilda carrier screen results Pt returned call & advised of results. documented in this encounter [facility] 10-19-2024 Telephone encount er Note Called and lvm to call office back regarding Gilda carrier screen results [facility] 10-19-2024 Telephone encount er Note Pt returned call & advised of results. [facility] 10-13-2024 Miscellaneous Notes Formattin g of this note might be different from the original. Called and lvm for pt to call office back regarding Gilda NIPS testing results documented in this encounter [facility] 10-13-2024 Telephone encount er Note Called and lvm for pt to call office back regarding Gilda NIPS testing results [facility] 10-05-2024 History of Presen t illness Narrative This patient came in today for an Gilda blood draw. The patient tolerated the procedure well. No adverse reactions noted. Informed the patient that the results can take 7-10 business days. She verbalized she understood. The patient is to return for her next routine visit. Per ACOG Committee Opinion No. 691 November 2016 which states genetic carrier screening should be provided to every woman and ACOG Practice Bulletin No. 223 which states that screening and diagnostic testing for chromosomal abnormalities should be discussed and offered to all patients early in regardless of maternal age or baseline risk. Patient has been made aware that genetic counseling services are available pre- and post-testing per patient request or upon medical indication. Patient verbalizes understanding. documented in this encounter [facility] 09-28-2024 History of Presen t illness Narrative Initial visit 18 y.o. at 10w2d. Telephone OB intake and video visit with provider done on 08/30/24. Patient denies cramping or abdominal pain. She denies vaginal bleeding. Tolerating regular diet without emesis. No concerns today. 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 She states the pharmacy did not have her insurance information and was rude to her so she left. She desires RX to be sent to [facility] in [place] and states she will pick it up today. Vitals: 09/28/24 1119 BP: 128/80 Weight: 99.8 kg (220 lb) complicated by: Patient Active Problem List Diagnosis Primiparity Obesity affecting Rubella non-immune status, antepartum Susceptible to varicella (non-immune), currently UTI in , first trimester 1. Reviewed labs, ultrasound, EDC, and early danger signs. 2. Discussed genetic testing. Patient desires all. 3. physical complete and cultures collected collected. 4. Flu shot given today. 5. Educational information given. 6. Questions answered 7. Return 4 weeks. CIERA Horvath 09/28/24 1152 Pt is here for 1st OB Check. Pt has not yet gotten her antibiotic for UTI. Educated pt on importance of getting med, Pt verbalized understanding. Pt desires FLU VACCINE. Pt desires genetic testing. Urine is + for nitrates documented in this encounter [facility] 09-09-2024 History of Presen t illness Narrative Phone call to patient to discuss labs. She is made aware of + UTI and need to take entire course of antibiotic. Patient encouraged to avoid anyone with chicken pox or bahraini measles. Patient has a visit scheduled for 09/19/24. CIERA Horvath 09/09/24 1300 documented in this encounter [facility] 08-30-2024 History of Presen t illness Narrative OB Intake Video Visit 18 y.o. at 7w2d contacted through [employer] for OB intake video visit. verified and verbal consent obtained for video visit. Patient and provider both currently located in the [facility]. This was a planned . FOB involved (Freddy, boyfriend). Patient denies vaginal bleeding. Occasional nausea / no vomiting. Obstetrical, Medical, Surgical, Social & Family history reviewed. Reviewed EDC and that it could change based upon ultrasound. Problem list updated. Negative history of HSV, substance abuse, severe anemia. No hx uterine surgeries or LEEP. Risk factors include: primip, elevated BMI. 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 Discussed testing. Pt desires all. The patient reports that there is not domestic violence in her life. Discussed exercise, diet and weight gain. Current BMI 34. Discussed smoking, alcohol use and drug use. Patient denies all. Quit vaping with . Discussed early danger signs and when/how to notify provider. Reviewed CNM / PRESCHOOL PRINCIPAL care, collaboration & referral to TRANSIT OPERATOR as needed. Reviewed course of care. Discussed CDC recommendation for exclusive for the first 6 months. Patient has been covid vaccinated. Discussed recommendations in . Patient is taking a gummy vitamin. All questions answered. Educational materials provided through [employer]. Ultrasound and labs ordered. Appointment scheduled for initial OB visit with provider on 09/19/24. CIERA Horvath 08/30/24 1427 documented in this encounter [facility] 08-05-2024 Miscellaneous Notes Formattin g of this note might be different from the original. Patient called requesting [facility] lab order. She would be a new patient to us. Her LMP was 07/10/2024. She had a positive test at home. Patient would like to confirm before scheduling an OB Intake appointment.Please advise. Thank you. Order placed. Orders Placed This Encounter Procedures hCG, quantitative, Standing Status: Standing Number of Occurrences: 6 Standing Expiration Date: 08/05/2025 Order Specific Question: Release to patient via [employer]? Answer: Immediate [1] Per Lynsey Sepulveda CNP the patient is to have 1 lab draw & she will contact the patient with results. Based on the results will determine if she needs to have initial lab draws. Patient notified & voiced understanding. documented in this encounter [facility] 08-05-2024 Telephone encount er Note Patient called requesting [facility] lab order. She would be a new patient to us. Her LMP was 07/10/2024. She had a positive test at home. Patient would like to confirm before scheduling an OB Intake appointment.Please advise. Thank you. [facility] 08-05-2024 Telephone encount er Note Order placed. Orders Placed This Encounter Procedures hCG, quantitative, Standing Status: Standing Number of Occurrences: 6 Standing Expiration Date: 08/05/2025 Order Specific Question: Release to patient via [employer]? Answer: Immediate [1] [facility] 08-05-2024 Telephone encount er Note Per Lynsey Sepulveda CNP the patient is to have 1 lab draw & she will contact the patient with results. Based on the results will determine if she needs to have initial lab draws. Patient notified & voiced understanding. [facility] 08-07-2023 Evaluation note Encounter Date Diagnosis Assessment Notes Jul, Acute conjunctivitis of right eye, unspecified acute conjunctivitis type (ICD-10 - H10.31) Discussed diagnosis with patient and grandmother today in office. Advised patient that symptoms are likely viral in nature, however, due to purulent drainage, will send in Rx of antibiotic drop to use as directed. Encouraged good hand hygiene and infection control, wash linens and bedding, do not touch eye directly with eye drop bottle, wipe off bottle after every use, do not share eye drop bottles. Apply cool compress to eye several times a day, clean eye with warm, moist cloth from inner to outer canthus. Eye symptoms should improve in 2-3 days with treatment, if no improvement follow up with PCP or eye doctor. Immediate eval if symptoms worsen, eye pain, vision changes, redness and swelling occur around the eye, headache, fever, N/V or any other concerning symptoms. Patient's grandmother verbalizes understanding and is agreeable to treatment plan. Jul, Viral URI with cough (ICD-10 - J06.9) Advise grandmother that rapid COVID/influenza A/B test was negative today in office. Advised that we will treat as viral URI. Advised that viral illnesses may last 7-10 days, antibiotics are not indicated at this time. Encouraged supportive care as directed, increase fluids and rest, Tylenol/Motrin as directed, rx of Capmist and prednisone as directed, OTC Flonase, cool mist humidifier, throat lozenges. Discussed infection control practices such as good hand washing and mask wearing. School note provided. Patient to follow up with PCP if symptoms persist or worsen despite treatment. Immediate eval for SOB, difficulty breathing, chest pain, fevers that do not break with antipyretic or any other concerning symptoms as reviewed on patient education handout. Grandmother verbalizes understanding and is agreeable to treatment plan. Patient left in stable condition Jul, Contact with and (suspected) exposure to covid-19 (ICD-10 - Z20.822) [employer] Other 10-30-2023 Evaluation note* Encounter Date Diagnosis Assessment Notes Treatment Notes Treatment Clinical Notes Jun, Physical exam (ICD-10 - Z00.00) Physical exam completed. May work without restrictions. [employer] Other 06-15-2023 Evaluation note* Encounter Date Diagnosis Assessment Notes Treatment Notes Treatment Clinical Notes Feb, Physical exam, pre-employment (ICD-10 - Z02.1) Exam and history without abnormality. Cleared for work permit without restrictions. Follow-up with PCP for regular well visits. Parent and patient deny any current health concerns or questions. [employer] Other 05-11-2023 Evaluation note* Encounter Date Diagnosis Assessment Notes Treatment Notes Treatment Clinical Notes January, Viral URI (ICD-10 - J06.9) No testing performed today in office. Advised mother that will treat as viral URI. Supportive care as directed, increase fluids and rest, Tylenol/Motrin as directed, Rx of Bromfed, OTC Flonase, cool mist humidifier, throat lozenges. Discussed infection control practices such as good hand washing and mask wearing. Patient to follow up with PCP if symptoms persist or worsen despite treatment. Immediate eval for SOB, difficulty breathing, chest pain, fevers that do not break with antipyretic or any other concerning symptoms as reviewed on patient education handout. Mother verbalizes understanding and is agreeable to treatment plan. Patient left in stable condition [employer] Other 03-03-2023 Evaluation note* Encounter Date Diagnosis Assessment Notes Treatment Notes Treatment Clinical Notes Nov, Contact with and (suspected) exposure to covid-19 (ICD-10 - Z20.822) Advised patient that COVID PCR test was negative today. Patient is not currently having symptoms, no acute findings present on exam. Advised to follow up with PCP as needed. Mother verbalizes understanding and is agreeable with treatment plan [employer] Other 10-18-2022 Evaluation note* Encounter Date Diagnosis Assessment Notes Treatment Notes Treatment Clinical Notes Jun, Contact with and (suspected) exposure to other viral communicable diseases (ICD-10 - Z20.828) Jun, DEMETRIUS (generalized anxiety disorder) (ICD-10 - F41.1) Today during the appointment we discussed depression and emotions. We talked about treatment options that include both counseling and medication interventions. When we first start treatment, it is common to have to be seen more frequently as we figure out the best treatment regimen that fits you as an individual. We will be able to space out appointments more once we find what works for you. If at any time you feel like your symptoms have increased in severity or you want to hurt yourself, please never hesitate to contact us and we will get you in to be seen. Also always know the [facility] Health Emergency Number is 24 hours a day available, even on holidays there is someone you can reach out to. Also we will check other labs yearly to screen for other health issues. Please remember we are a team and your opinion is very important in all of your healthcare decisions Jun, ADHD (attention deficit hyperactivity disorder), combined type (ICD-10 - F90.2) Take medication in the morning. Follow up in 4 weeks to see how medication is working. Patient parent can have school send over from school so she can participate in school based counseling [employer] Other 07-07-2022 Evaluation note* Encounter Date Diagnosis Assessment Notes Treatment Notes Treatment Clinical Notes Mar, Left acute otitis media (ICD-10 - H66.92) Ear infections are often a secondary infection caused from an URI, the flu or allergies. Take medication as directed. Complete all doses, even if you feel better. Tylenol or ibuprofen can help with pain. Warm pack to area for comfort helps as well. Follow up with primary care provider if no improvement of symptoms. Take out ear wick after 24 hours Ear wick placed in canal today in office. [employer] Other 05-10-2022 Evaluation note* Encounter Date Diagnosis Assessment Notes Treatment Notes Treatment Clinical Notes January, DEMETRIUS (generalized anxiety disorder) (ICD-10 - F41.1) May continue both of these medications as directed and take in the morning as directed. Follow up within the next few weeks since you haven't taken the Strattera consistently to see if it helps with anxiety and ADHD symptoms without causing side effects the Adderral caused. January, ADHD (attention deficit hyperactivity disorder), combined type (ICD-10 - F90.2) Since medication has been stopped for over 2 weeks, there is not reason medication needs as weaning protocol. [employer] Other 02-22-2022 Evaluation note* Encounter Date Diagnosis Assessment Notes Treatment Notes Treatment Clinical Notes Oct, Pre-employment examination (ICD-10 - Z02.1) [employer] Other Evaluation noteNo InformationNort [facility] [employer] Other Evaluation noteNo assessment information available [facility] Work Phone: Evaluation note* Diagnosis Cystitis of in first trimester- Primary [facility] Diagnosis care, first trimester- Primary UTI in , first trimester Susceptible to varicella (non-immune), currently Supervision of other normal Rubella non-immune status, antepartum UTI in , first trimester Obesity affecting in first trimester, unspecified obesity type [facility] Diagnosis Genetic screening- Primary Other genetic screening Susceptible to varicella (non-immune), currently Supervision of other normal Rubella non-immune status, antepartum UTI in , first trimester Obesity affecting in first trimester, unspecified obesity type [facility] Diagnosis UTI in , first trimester Susceptible to varicella (non-immune), currently Supervision of other normal Rubella non-immune status, antepartum UTI in , first trimester Obesity affecting in first trimester, unspecified obesity type [facility] Diagnosis UTI in , first trimester Susceptible to varicella (non-immune), currently Supervision of other normal Rubella non-immune status, antepartum UTI in , first trimester Obesity affecting in first trimester, unspecified obesity type [facility] Diagnosis Susceptible to varicella (non-immune), currently Supervision of other normal Rubella non-immune status, antepartum UTI in , first trimester Obesity affecting in first trimester, unspecified obesity type [facility] Diagnosis care, second trimester- Primary UTI in , first trimester Encounter for anatomic survey Susceptible to varicella (non-immune), currently Supervision of other normal Rubella non-immune status, antepartum UTI in , first trimester Obesity affecting in first trimester, unspecified obesity type [facility] Diagnosis Positive urine test- Primary [facility] Diagnosis First trimester - Primary state, incidental [facility] Diagnosis care, second trimester- Primary Susceptible to varicella (non-immune), currently Supervision of other normal Rubella non-immune status, antepartum UTI in , first trimester Obesity affecting in first trimester, unspecified obesity type [facility] Diagnosis Fall, initial encounter- Primary Susceptible to varicella (non-immune), currently Supervision of other normal Rubella non-immune status, antepartum UTI in , first trimester Obesity affecting in first trimester, unspecified obesity type [facility]* Diagnosis UTI in , first trimester Susceptible to varicella (non-immune), currently Supervision of other normal Rubella non-immune status, antepartum UTI in , first trimester Obesity affecting in first trimester, unspecified obesity type [facility] Diagnosis Second trimester - Primary state, incidental Susceptible to varicella (non-immune), currently Supervision of other normal Rubella non-immune status, antepartum UTI in , first trimester Obesity affecting in first trimester, unspecified obesity type [facility]* Diagnosis Abnormal glucose tolerance test in - Primary Susceptible to varicella (non-immune), currently Supervision of other normal Rubella non-immune status, antepartum UTI in , first trimester Obesity affecting in first trimester, unspecified obesity type [facility] Diagnosis care, second trimester- Primary Susceptible to varicella (non-immune), currently Supervision of other normal Rubella non-immune status, antepartum UTI in , first trimester Obesity affecting in first trimester, unspecified obesity type [facility] Diagnosis care, third trimester- Primary Susceptible to varicella (non-immune), currently Supervision of other normal Rubella non-immune status, antepartum UTI in , first trimester Obesity affecting in first trimester, unspecified obesity type [facility] N[facility] - Reported* Type Description Date Medical History adhd [employer] Other InstructionsNot on filedocumented in this encounter [facility]* Attachments The following attachments cannot be sent through Care Everywhere. * Cell-Free DNA Screening ([employer]) * Being Overweight During ([employer]) * Medications and ([employer]) * Nutrition before and during (Ivorian) [facility] System[facility]ructionsNot on file documented in this encounter[facility] SystemInstructionsNot on file documented in this [facility] SystemInstructionsNot on file documented in this [facility] SystemInstructions* Attachments The following attachments cannot be sent through Care Everywhere. * Quad Test ([employer]vorian) * The Fourth Month (Ivorian) * Deciding to breastfeed (Ivorian) [facility] Attachments The following attachments cannot be sent through Care Everywhere. * Activity during (Ivorian) * Healthy Weight Gain During (Ivorian) * How to Adapt to Physical Changes During (Ivorian) * care (Ivorian) [facility] Attachments The following attachments cannot be sent through Care Everywhere. * The Fifth Month (Ivorian) [facility] Attachments The following attachments cannot be sent through Care Everywhere. * Tdap vaccine (Ivorian) * Preparing for Childbirth (Ivorian) * Deciding to breastfeed (Ivorian) [facility] Attachments The following attachments cannot be sent through Care Everywhere. * Tdap vaccine (Ivorian) * Preparing for Childbirth (Ivorian) [facility] Attachments The following attachments cannot be sent through Care Everywhere. * The Seventh Month (Ivorian) * Tdap vaccine (Ivorian) * control after having a baby (Ivorian) documented in this [facility] Summary Purpose Family History No Family History Records FoundNo Family History Records FoundNo Family History Records FoundNo Family History Records Found Advance Directives Advance Directive Response Recorded Date/ Time Advance Directives No May 2:44pm Advance Directive Response Recorded Date/ Time Advance Directives No May 1:44pm Date Activated Date Inactivated Comments 01/11/2025 5:12 PM 01/11/2025 9:43 PM Chief Complaint and Reason for Visit Chief Complaint Lump on breast Chief Complaint Admit Date sore throat, fever, cough November 01, 2024 5:22pm Additional Source Comments INFORMATION SOURCE (unrecogn ized section and content) DATE CREATED AUTHOR 11/16/2021 [facility] DATE CREATED AUTHOR AUTHOR'S ORGANIZ ATION 11/05/2024 [facility] DATE CREATED AUTHOR AUTHOR'S ORGANIZ ATION 01/24/2025 [facility] DATE CREATED AUTHOR AUTHOR'S ORGANIZ ATION [facility] REASON FOR VISIT (unrecogniz ed section and content) Reason Comments Initial Visit Pt is here for 1s t OB Check. Reason Comments Genetic Screening Reason Comments Routine Visit Pt is here for PN V. Reason Comments Initial Visit Reason Comments Routine Visit Pt is here for PN V. Care Teams (unrecognized sec tion and content) Team Status: Active Member Role Status Dates PHYSICIAN NO FAMILY Primary Care Provider Active Team Status: Inactive Member Role Status Dates Riya Edgar APRN Attending Provider Active Start: June 10, 2024 End: June 10, 2024 PHYSICIAN NO FAMILY Primary Care Provider Active Start: June 10, 2024 End: June 10, 2024 Press Shop Supervisor Relationship Specialty Start Date End Date No Pcp, [place] [address] PCP - General Family Medicine 08/08/24 Press Shop Supervisor Relationship Specialty Start Date End Date No Pcp, [place] [address] PCP - General Family Medicine 08/08/24 Press Shop Supervisor Relationship Specialty Start Date End Date No Pcp, [place] [address] PCP - General Family Medicine 08/08/24 Press Shop Supervisor Relationship Specialty Start Date End Date No Pcp, [place] [address] PCP - General Family Medicine 08/08/24 Press Shop Supervisor Relationship Specialty Start Date End Date No Pcp, [place] [address] PCP - General Family Medicine 08/08/24 Press Shop Supervisor Relationship Specialty Start Date End Date No Pcp, [place] [address] PCP - General Family Medicine 08/08/24 Team Status: Inactive Member Role Status Dates PHYSICIAN NO FAMILY Primary Care Provider Active Start: November 01, 2024 End: November 01, 2024 Liset Aguilera APRN Attending Provider Active Start: November 01, 2024 End: November 01, 2024 Press Shop Supervisor Relationship Specialty Start Date End Date No Pcp, [place] [address] PCP - General Family Medicine 08/08/24 Press Shop Supervisor Relationship Specialty Start Date End Date No Pcp, [place] [id number] PCP - General Family Medicine 08/08/24 Press Shop Supervisor Relationship Specialty Start Date End Date No Pcp, [place] [address] PCP - General Family Medicine 08/08/24 Press Shop Supervisor Relationship Specialty Start Date End Date No Pcp, [place] [address] PCP - General Family Medicine 08/08/24 [employer] Supervisor Relationship Specialty Start Date End Date No Pcp, [place] [address] PCP - General Family Medicine 08/08/24 [employer] Supervisor Relationship Specialty Start Date End Date No Pcp, [place] [address] PCP - General Family Medicine 08/08/24 Goals (unrecognized section and content) Goals may be documented in a n alternate section FOR RECORDS PERTAINING TO PATIENTS WHO ARE OR HAVE BEEN ENROLLED IN A CHEMICAL DEPENDENCY/SUBSTANCEABUSE PROGRAM, SOME INFORMATION MAY BE OMITTED. This clinical summary was aggregated from multiple sources. Caution should be exercised in using it in the provision of clinical care. This summary normalizes information from multiple sources, and as a consequence, information in this document may materially change the coding, format and clinical context of patient data. In addition, data may be omitted in some cases. CLINICAL DECISIONS SHOULD BE BASED ON THE PRIMARY CLINICAL RECORDS. [facility] [employer] [facility] provides no warranty or guarantee of the accuracy or completeness of information in this document.
[2025-02-08 20:55] VITALS: BP 125/67; PULSE 98
[2025-02-08 21:01] LABS: Bilirubin Urine NEGATIVE (NEGATIVE); Blood Urine NEGATIVE (NEGATIVE); Clarity Urine CLEAR (CLEAR); Color Urine LT. YELLOW (YELLOW); Glucose Urine UA NEGATIVE (NEGATIVE); Ketones Urine NEGATIVE (NEGATIVE); Leukocyte Esterase Urine MODERATE (NEGATIVE); Nitrite Urine NEGATIVE (NEGATIVE); Protein Urine NEGATIVE (NEG/TRACE); Specific Gravity Urine 1.015 (1.005-1.025)
[2025-02-08 21:02] LABS: Urine Microscopic Indicated YES
[2025-02-08 21:11] LABS: Bacteria Urine TRACE #/HPF (NONE SEEN); Mucus Urine NONE SEEN (NONE SEEN); RBC Urine NONE SEEN #/HPF (0-2); Squamous Epithelial Cell Urine MODERATE #/LPF (NONE/RARE); Transitional Epi Cells Urine RARE #/LPF (NONE SEEN)
[2025-02-08 21:12] LABS: Amorphous Sediment Urine FEW; Cast Seen? NONE SEEN #/LPF (NONE SEEN); Crystals Seen? Seen #/HPF (None Seen); Urine Culture Indicated YES-LC
== END 2025-02-08 22:38 | disposition home or self-care (01) ==
LOC: FBC 20:42
PROVIDERS: Admitting Provider Obstetrics & Gynecology; PCP Nurse Practitioner; Visit Provider Obstetrics & Gynecology
DX: O26.893 Other specified pregnancy related conditions, third trimester (principal); R10.9 Unspecified abdominal pain; Z3A.29 29 weeks gestation of pregnancy
CPT/HCPCS: 59025; 81001; 87086; G0378; G0379